=== PATIENT | female | born 1945 | race Caucasian/White ===

== ENCOUNTER 2016-06-18 14:31 | Emergency (ER) | payer MEDICARE, OTHER ==
[~2016-06-18] VITALS: Ht 162.6 cm; Wt 75.5 kg
[~2016-06-18 14:31] MED LIST: ALLE12TA PO; LEXA20TA PO; PRED20 PO; PROT40TA PO
[2016-06-18 14:50] VITALS: BP 135/89; PULSE 80; RESP 16; TEMP 99.2; O2SAT 100
[2016-06-18] MEDS ORDERED: LEXA20TA PO (15:10)
[2016-06-18] MEDS ORDERED: PROT40TA PO (15:10)
[2016-06-18] MEDS ORDERED: ALLE12TA2 PO (15:10)
[2016-06-18] MEDS ORDERED: GABA300C5 PO (15:10)
--- NOTE | 2016-06-18 15:33 | RADHPO ---
EXAM DATE/TIME: 06/18/2016 15:16 [facility] COMPARISON: No previous studies available for comparison. INDICATIONS : Trauma, fall. RADIATION DOSE: 67.80 CTDIvol (mGy) MEDICAL HISTORY : Carcinoma, sinuses. SURGICAL HISTORY : Surgery for sinus tumor. ENCOUNTER: Initial ACUITY: 1 day PAIN SCALE: 0/10 LOCATION: cranial TECHNIQUE: Multiple contiguous axial images were obtained of the head. Using automated exposure control and adj ustment of the mA and/or kV according to patient size, radiation dose was kept as low as reasonably a chievable to obtain optimal diagnostic quality images. FINDINGS: CEREBRUM: The ventricles are normal for age. No evidence of midline shift, mass lesion, hemorrhage or acute in farction. No extra-axial fluid collections are seen. POSTERIOR FOSSA: The cerebellum and brainstem are intact. The 4th ventricle is midline. The cerebellopontine angle i s unremarkable. EXTRACRANIAL: The visualized portion of the orbits is intact. There is moderate mucoperiosteal sinus disease. There 's been previous surgery on the left. SKULL: The calvaria is intact. No evidence of skull fracture. Note is made of small hematoma within the sca lp along the frontal bone. CONCLUSION: 1. No acute intercranial abnormality. 2. Hematoma within the scalp. 3. No acute intracranial abnormality. Paul Lira MD on June 18, 2016 at 15:28 Board Certified Radiologist. This report was verified electronically.
[2016-06-18 15:51] LABS: BASOPHIL % 0.5 % (0.0-2.0); EOSINOPHIL # 0.2 TH/MM3 (0-0.4); LYMPHOCYTE # 1.7 TH/MM3 (1.0-4.8); MEAN CELL VOLUME 97.9 FL (80.0-100.0); MEAN CORPUSCULAR HGB CONC 32.7 % (32.0-36.0); MONO % 21.8 % (0.0-8.0); NEUT % 51.7 % (16.0-70.0); PLATELET COUNT 97 TH/MM3 (150-450); RED BLOOD COUNT 3.36 MIL/MM3 (4.00-5.30); RED CELL DISTRIBUTION WIDTH 14.4 % (11.6-17.2); WHITE BLOOD COUNT 7.6 TH/MM3 (4.0-11.0)
--- NOTE | 2016-06-18 15:57 | PD ---
HPI Chief Complaint: Fall Time Seen by Provider: 15:04 Travel History International Travel<30 days: No Contact w/Intl Traveler<30days: No Traveled to known affect area: No History of Present Illness HPI This 70 year-old woman who presents to the emergency department complaining of trip over a curb with fall. She has a hematoma on her forehead. She did not lose consciousness. 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 Last chemotherapy was about a month or so ago. She has had a little bit again balance problems since starting chemotherapy. She was diagnosed about 18 months ago. She otherwise has been in her usual state of health. No other complaints. History Past Medical History Narrative Medical Sinus cancer Tetanus Vaccination: < 5 Years Influenza Vaccination: Yes Menopausal: Yes Social History Alcohol Use: Yes (DAILY GLASS OF WINE OR MIX DRINKS) Tobacco Use: No Allergies-Medications (Allergen,Severity, Reaction): Coded Allergies: Codeine (Verified Allergy, Severe, HIVES, 06/18/16) Erythromycin (Verified Allergy, Severe, HIVES, 06/18/16) Penicillin (Verified Allergy, Severe, HIVES, 06/18/16) Sulfa (Verified Allergy, Severe, HIVES, 06/18/16) Reported Meds & Prescriptions Reported Meds & Active Scripts Active Reported Gabapentin 300 Mg Cap 300 Mg PO BID Protonix (Pantoprazole Sodium) 40 Mg Tab 40 Mg PO DAILY Gisela-D 12 Hour Allergy (Fexofenadine-Pseudoephedrine ER 12 HR) 60-120 Mg Paulina 1 Tab PO BID Lexapro (Escitalopram Oxalate) 20 Mg Tab 20 Mg PO DAILY Review of Systems Except as stated in HPI: all other systems reviewed are Neg Physical Exam Narrative GENERAL: Well-appearing 70 year-old woman, no acute distress. SKIN: Focused skin assessment warm/dry. HEAD: Normocephalic. Contusion to the anterior forehead. EYES: Pupils equal and round. No scleral icterus. No injection or drainage. ENT: No nasal bleeding or discharge. Mucous membranes pink and moist. NECK: Trachea midline. No midline tenderness. Full painless range of motion. CARDIOVASCULAR: Regular rate and rhythm. No murmur appreciated. RESPIRATORY: No accessory muscle use. Clear to auscultation. Breath sounds equal bilaterally. GASTROINTESTINAL: Abdomen soft, non-tender, nondistended. Hepatic and splenic margins not palpable. MUSCULOSKELETAL: No obvious deformities. No edema. NEUROLOGICAL: Awake and alert. No obvious cranial nerve deficits. Motor grossly within normal limits. Normal speech. Data Data Last Documented VS Vital Signs Date Time Temp Pulse Resp B/P Pulse Ox O2 Delivery O2 Flow Rate FiO2 06/18/16 14:50 99.2 80 16 135/[address] Brain W/O Iv Contrast(Rout) (06/18/16 ) Ct Facial Bones W/O Iv Cont (06/18/16 ) Complete Blood Count With Diff (06/18/16 15:04) Radiology Film Requests (06/18/16 ) Labs Laboratory Tests Test 06/18/16 15:45 White Blood Count 7.6 TH/MM3 Red Blood Count 3.36 MIL/MM3 Hemoglobin 10.8 GM/DL Hematocrit 33.0 % Mean Corpuscular Volume 97.9 FL Mean Corpuscular Hemoglobin 32.0 PG Mean Corpuscular Hemoglobin 32.7 % Concent Red Cell Distribution Width 14.4 % Platelet Count 97 TH/MM3 Mean Platelet Volume 7.3 FL Neutrophils (%) (Auto) 51.7 % Lymphocytes (%) (Auto) 23.0 % Monocytes (%) (Auto) 21.8 % Eosinophils (%) (Auto) 3.0 % Basophils (%) (Auto) 0.5 % Neutrophils # (Auto) 4.0 TH/MM3 Lymphocytes # (Auto) 1.7 TH/MM3 Monocytes # (Auto) 1.7 TH/MM3 Eosinophils # (Auto) 0.2 TH/MM3 Basophils # (Auto) 0.0 TH/MM3 CBC Comment AUTO DIFF MDM Medical Decision Making Medical Screen Exam Complete: Yes Emergency Medical Condition: Yes Interpretation(s) CT head: Unremarkable. CBC unremarkable. Differential Diagnosis Head injury, neck injury, face injury, other Narrative Course Medical decision making 70 year-old woman presents after trip and fall over a curb. She looks well. Psych chemotherapy but has not chemotherapy for month or so. CT heads okay. We 'll get face and check cell count. Likely normal. Diagnosis Primary Impression: Fall Additional Impression: Closed head injury Departure Forms: Tests/Procedures, Work Release Special Instructions: Please allow patient to fly. She was evaluated by a physician yesterday for injuries from a fall. She is cleared to fly to [place]. Additional Instructions: Follow-up with her regular doctors. Return to the emergency department for any new or worsening symptoms. Med/Other Pt SpecificInfo: No Change to Meds Disposition: 01 DISCHARGE HOME Condition: Stable Kev Taylor MD June 18, 2016 15:57
[2016-06-18 16:05] LABS: HEMO FLAGS AUTO DIFF
--- NOTE | 2016-06-18 16:30 | RADHPO ---
EXAM DATE/TIME: 06/18/2016 15:16 [facility] COMPARISON: No previous studies available for comparison. INDICATIONS : Trauma, fall. RADIATION DOSE: 34.93 CTDIvol (mGy) MEDICAL HISTORY : Carcinoma, sinus. SURGICAL HISTORY : Sinus tumor surgery. ENCOUNTER: Initial ACUITY: 1 day PAIN SCORE: 0/10 LOCATION: facial TECHNIQUE: Volumetric scanning of the facial bones was performed. Using automated exposure control and adjustme nt of the mA and/or kV according to patient size, radiation dose was kept as low as reasonably achiev able to obtain optimal diagnostic quality images. FINDINGS: ORBITS: The orbital and infraorbital osseous structures are intact. The retroconal structures have a normal configuration. No radiopaque foreign bodies are seen. NASAL BONE: The nasal bone and maxillary spine are intact ZYGOMATIC ARCHES: Symmetric without evidence of fracture. SINUSES: Previous sinus surgery. Extensive residual or recurrent sinus disease with near-complete opacificatio n of multiple left-sided ethmoid air cells and left maxillary antrum and complete opacification of th e left sphenoid and fluid and thickening involving the remaining right sphenoid and right-sided ethmo ids and frontal sinuses. Mastoids are grossly clear. NASAL CAVITY: The nasal septum is intact and midline. The lacrimal ducts are intact. SOFT TISSUES: No radiopaque foreign bodies seen. Moderate focal soft tissue swelling in the right paramedian fronta l region.. INTRACRANIAL: No intracranial air seen. CRIBIFORM PLATE: Grossly intact. CONCLUSION: Frontal scalp swelling. Extensive sinus disease. No evidence of facial fracture. Jacinto Shoemaker MD on June 18, 2016 at 16:24 Board Certified Radiologist. This report was verified electronically.
[2016-06-18 16:42] LABS: EOSINOPHILS 2 % (0-4); NEUTROPHIL # MANUAL DIFF 4.2 TH/MM3 (1.8-7.7); OVALOCYTES 1+ (NORMAL); PLATELET ESTIMATE SMEAR LOW (NORMAL); PLATELET MORPHOLOGY NORMAL (NORMAL); POLYS (SEG NEUTROPHILS) 55 % (16-70); SCAN/DIFF FINAL DIFF MANUAL; WBC DIFF SAMPLE 100
[2016-06-18 16:58] VITALS: BP 128/88
== END 2016-06-18 17:05 | disposition home or self-care (01) ==
LOC: PHED 14:31
DX: S09.90XA Unspecified injury of head, initial encounter (principal); S00.83XA Contusion of other part of head, initial encounter; C31.9 Malignant neoplasm of accessory sinus, unspecified; Z79.899 Other long term (current) drug therapy
CPT/HCPCS: 70450; 70486; 85007; 85027

== ENCOUNTER 2016-07-03 19:03 | Inpatient (IN) | payer MEDICARE ==
[~2016-07-03] VITALS: Ht 162.6 cm; Wt 72.0 kg
[~2016-07-03 19:03] MED LIST changes: -ALLE12TA PO; +ALLE12TA2 PO; +GABA300C5 PO; -PRED20 PO
[2016-07-03 19:28] VITALS: BP 117/83; RESP 16; TEMP 97.8
[2016-07-03 19:32] VITALS: BP 129/78; PULSE 81; RESP 18; O2SAT 99
--- NOTE | 2016-07-03 19:39 | PD ---
HPI Chief Complaint: Altered Mental Status Time Seen by Provider: 19:16 Travel History International Travel<30 days: No Contact w/Intl Traveler<30days: No Traveled to known affect area: No History of Present Illness HPI This 70-year-old female has been extremely tired the last few days. Her says that he found her sitting on the toilet today possibly sleeping. She says she has been sleeping about 12 hours a day and is tired all the time. She was seen in the emergency department on June 18. On that day she had a fall and had extensive bruising to her face and head. He had a CT of the brain which was negative for intracranial disease. She had maxillofacial CT which showed extensive sinus disease but no fracture. 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 She has been treated with chemotherapy at a cancer Center in [place]. She was at the cancer center a few days after her fall and had a PET scan which did not show any evidence of disease. Lymphoma was diagnosed 2 years ago. She goes to her cancer center monthly has either an MRI or a PET scan. There has not been any new medication added. She has been having quite a severe right-sided headache for the past few days. She does not take any blood thinners. She does take Tylenol. Her says that she has been a bit confused much more so the last few days. She has had some mild confusion previously but it is becoming more evident. PFSH Past Medical History Anxiety: Yes Depression: Yes Chemotherapy: Yes (SINUS/BRAIN) COPD: Yes (MILD) Diminished Hearing: No Gastrointestinal Disorders: Yes (STOMACH ULCERS) Glaucoma: Yes (PRE GLAUCOMA) Ulcer: Yes (GASTRIC) ?: Not Menopausal: Yes Tubal Ligation: Yes Past Surgical History Eye Surgery: Yes (RIGHT EYE NEVUS REMOVED) Tonsillectomy: Yes Other Surgery: Yes (HEMMORROIDECTOMY, PLASTIC SURGERY -FACIAL, SINUS SURGERY) Social History Alcohol Use: Yes (DAILY GLASS OF WINE OR MIX DRINKS) Tobacco Use: No Substance Use: No Allergies-Medications (Allergen,Severity, Reaction): Coded Allergies: Codeine (Verified Allergy, Severe, HIVES, 07/03/16) Erythromycin (Verified Allergy, Severe, HIVES, 07/03/16) Penicillin (Verified Allergy, Severe, HIVES, 07/03/16) Sulfa (Verified Allergy, Severe, HIVES, 07/03/16) Reported Meds & Prescriptions Reported Meds & Active Scripts Active Reported Gabapentin 300 Mg Cap 300 Mg PO BID Protonix (Pantoprazole Sodium) 40 Mg Tab 40 Mg PO DAILY Gisela-D 12 Hour Allergy (Fexofenadine-Pseudoephedrine ER 12 HR) 60-120 Mg Paulina 1 Tab PO BID Lexapro (Escitalopram Oxalate) 20 Mg Tab 20 Mg PO DAILY Review of Systems General / Constitutional: No: Fever, Chills HENT: Positive: Headaches, Lightheadedness Cardiovascular: No: Chest Pain or Discomfort, Palpitations Respiratory: No: Cough, Shortness of Breath Gastrointestinal: No: Nausea, Vomiting Genitourinary: No: Frequency, Dysuria Musculoskeletal: No: Myalgias, Arthralgias Skin: No Rash, No Itching Neurologic: Positive: Weakness, Syncope, Headache, Change in Mentation, No: Seizures Psychiatric: No: Anxiety, Depression Endocrine: No: Heat Intolerance Hematologic/Lymphatic: No: Easy Bruising Physical Exam Narrative GENERAL: Well-developed female SKIN: Focused skin assessment warm/dry. HEAD: There is bilateral periorbital bruising. Normocephalic. EYES: Pupils equal and round. No scleral icterus. No injection or drainage. ENT: No nasal bleeding or discharge. Mucous membranes pink and moist. NECK: Trachea midline. No JVD. CARDIOVASCULAR: Regular rate and rhythm. No murmur appreciated. RESPIRATORY: No accessory muscle use. Clear to auscultation. Breath sounds equal bilaterally. GASTROINTESTINAL: Abdomen soft, non-tender, nondistended. Hepatic and splenic margins not palpable. MUSCULOSKELETAL: No obvious deformities. No clubbing. No cyanosis. No edema. NEUROLOGICAL: Awake and alert. No obvious cranial nerve deficits. Motor grossly within normal limits. Normal speech. PSYCHIATRIC: Appropriate mood and affect; insight and judgment normal. Patient is oriented to the month and the year but does not know the day. She does answer some questions inappropriately Data Data Last Documented VS Vital Signs Date Time Temp Pulse Resp B/P Pulse Ox O2 Delivery O2 Flow Rate FiO2 07/03/16 19:32 81 16 99 Room Air 07/03/16 19:32 129/78 07/03/16 19:28 97.8 Orders Electrocardiogram (07/03/16 19:30) Complete Blood Count With Diff (07/03/16 19:30) Comprehensive Metabolic Panel (07/03/16 19:30) Troponin I (07/03/16 19:30) Prothrombin Time / Inr (Pt) (07/03/16 19:30) Act Partial Throm Time (Ptt) (07/03/16 19:30) Urinalysis - C+S If Indicated (07/03/16 19:30) Thyroid Stimulating Hormone (07/03/16 19:30) Ct Brain W/O Iv Contrast(Rout) (07/03/16 19:30) Mri Brain W&W/O Contrast (07/03/16 20:42) Dexamethasone Inj (Decadron Inj) (07/03/16 21:00) Labs Laboratory Tests Test 07/03/16 19:46 White Blood Count 7.5 TH/MM3 Red Blood Count 3.34 MIL/MM3 Hemoglobin 11.0 GM/DL Hematocrit 32.9 % Mean Corpuscular Volume 98.7 FL Mean Corpuscular Hemoglobin 32.9 PG Mean Corpuscular Hemoglobin 33.3 % Concent Red Cell Distribution Width 14.2 % Platelet Count 112 TH/MM3 Mean Platelet Volume 7.4 FL Neutrophils (%) (Auto) 69.1 % Lymphocytes (%) (Auto) 17.8 % Monocytes (%) (Auto) 11.4 % Eosinophils (%) (Auto) 1.5 % Basophils (%) (Auto) 0.2 % Neutrophils # (Auto) 5.2 TH/MM3 Lymphocytes # (Auto) 1.3 TH/MM3 Monocytes # (Auto) 0.9 TH/MM3 Eosinophils # (Auto) 0.1 TH/MM3 Basophils # (Auto) 0.0 TH/MM3 CBC Comment DIFF FINAL Differential Comment Prothrombin Time 11.2 SEC Prothromb Time International 1.0 RATIO Ratio Activated Partial 25.3 SEC Thromboplast Time Sodium Level 134 MEQ/L Potassium Level 3.5 MEQ/L Chloride Level 101 MEQ/L Carbon Dioxide Level 20.9 MEQ/L Anion Gap 12 MEQ/L Blood Urea Nitrogen 10 MG/DL Creatinine 0.80 MG/DL Estimat Glomerular Filtration 71 ML/MIN Rate Random Glucose 122 MG/DL Calcium Level 9.2 MG/DL Total Bilirubin 0.4 MG/DL Aspartate Amino Transf 17 U/L (AST/SGOT) Alanine Aminotransferase 16 U/L (ALT/SGPT) Alkaline Phosphatase 139 U/L Troponin I LESS THAN 0.02 NG/ML Total Protein 7.0 GM/DL Albumin 3.6 GM/DL Thyroid Stimulating Hormone 2.210 uIU/ML 3rd Gen [facility] Medical Decision Making Medical Screen Exam Complete: Yes Emergency Medical Condition: Yes Medical Record Reviewed: Yes Differential Diagnosis Differential includes electrolyte imbalance, subdural hematoma, syncope, anemia Narrative Course EKG shows normal sinus rhythm. Her troponin is normal. Hemoglobin is 11 with a white count of 7. Her sodium is 134. TSH level is normal. CT scan of the head shows a new area of edema bilaterally in the left parietal occipital region. MRI is recommended. CT scan of the head is been done. There is a new area of edema I am the left parietal occipital region. MRI is recommended. I have discussed the case with Dr. Najera. He recommends admission to the main hospital, Decadron 4 mg IV every 6 Diagnosis Primary Impression: Altered mental status Qualified Code: R41.0 - Disorientation Additional Impression: Cerebral edema Admitting Information Admitting Physician Requests: Admit Eddie David MD July 03, 2016 19:39
[2016-07-03 20:00] VITALS: BP 152/82; PULSE 72; RESP 18; TEMP 97.3; O2SAT 100
[2016-07-03 20:00] LABS: AUTOMATED NEUTROPHIL # 5.2 TH/MM3 (1.8-7.7); BASOPHIL % 0.2 % (0.0-2.0); EOSINOPHIL # 0.1 TH/MM3 (0-0.4); EOSINOPHIL % 1.5 % (0.0-4.0); HEMATOCRIT 32.9 % (35.0-46.0); HEMO FLAGS DIFF FINAL; LYMPH % 17.8 % (9.0-44.0); LYMPHOCYTE # 1.3 TH/MM3 (1.0-4.8); MEAN CELL VOLUME 98.7 FL (80.0-100.0); MEAN CORPUSCULAR HEMOGLOBIN 32.9 PG (27.0-34.0); MEAN CORPUSCULAR HGB CONC 33.3 % (32.0-36.0); MONO % 11.4 % (0.0-8.0); NEUT % 69.1 % (16.0-70.0); PLATELET COUNT 112 TH/MM3 (150-450); RED BLOOD COUNT 3.34 MIL/MM3 (4.00-5.30); RED CELL DISTRIBUTION WIDTH 14.2 % (11.6-17.2); WHITE BLOOD COUNT 7.5 TH/MM3 (4.0-11.0)
[2016-07-03 20:09] LABS: CHLORIDE 101 MEQ/L (98-107); POTASSIUM 3.5 MEQ/L (3.5-5.1); SODIUM (NA) 134 MEQ/L (136-145)
[2016-07-03 20:12] LABS: APTT (PATIENT) 25.3 SEC (24.3-30.1); PROTHROMBIN TIME - PATIENT 11.2 SEC (9.8-11.6)
[2016-07-03 20:13] LABS: ANION GAP 12 MEQ/L (5-15); BICARBONATE 20.9 MEQ/L (21.0-32.0)
[2016-07-03 20:14] LABS: BLOOD UREA NITROGEN 10 MG/DL (7-18)
[2016-07-03 20:17] LABS: ALT (GPT) 16 U/L (10-53); AST (GOT) 17 U/L (15-37); GLOMERULAR FILTRATION RATE 71 ML/MIN (>89)
[2016-07-03 20:18] LABS: TOTAL BILIRUBIN ADULT 0.4 MG/DL (0.2-1.0)
[2016-07-03 20:20] LABS: ALKALINE PHOSPHATASE 139 U/L (45-117)
--- NOTE | 2016-07-03 20:33 | RADHPO ---
EXAM DATE/TIME: 07/03/2016 19:46 [facility] COMPARISON: CT BRAIN W/O CONTRAST, June 18, 2016, 15:16. INDICATIONS : Right sided head trauma two weeks ago. Right temporal headache and altered mental s tatus since. RADIATION DOSE: 56.78 CTDIvol (mGy) MEDICAL HISTORY : None SURGICAL HISTORY : Sinus surgery. ENCOUNTER: Initial ACUITY: 2 weeks PAIN SCALE: 6/10 LOCATION: Right temporal TECHNIQUE: Multiple contiguous axial images were obtained of the head. Using automated exposure control and adjustment of the mA and/or kV according to patient size, radiation dose was kept as low as reasonably achievable to obtain optimal diagnostic quality images. FINDINGS: There is an area of edema high in the left centrum semiovale. The right hemisphere is unremarkable. Posterior fossa is normal. Portion of the orbits and paranasal sinuses visualized are unremarkable. CONCLUSION: Abnormal CT scan of the head as described above with a new area of edema high in the left parietal occipital region. MRI would be helpful for further evaluation. Davis Lira MD FACR on July 03, 2016 at 20:26 Board Certified Radiologist. This report was verified electronically.
[2016-07-03] MEDS ORDERED: DEXAMETHASONE SOD PHOS 4 MG/ML VIAL IV PUSH ONE (21:00)
[2016-07-03] MEDS ORDERED: SODIUM CHLORIDE 0.9% FLUSH 10 ML FLUSH IV FLUSH PRN (21:45)
[2016-07-03] MEDS ORDERED: NALOXONE HCL 0.4 MG/ML AMP IV PRN (21:45)
[2016-07-03] MEDS: PANTOPRAZOLE SODIUM 40 MG VIAL IV PUSH SCH (22:10)
[2016-07-03] MEDS: SODIUM CHLOR 0.9% 1000 ML INJ 1,000 ML IV SCH (22:10)
[2016-07-03 22:15] VITALS: BP 152/75; PULSE 80; RESP 16; O2SAT 99
[2016-07-03] MEDS ORDERED: ACETAMINOPHEN 325 MG TAB PO ONE (23:45)
[2016-07-04] VITALS: BP 148/80; PULSE 68; RESP 18; TEMP 97.7; O2SAT 100
--- NOTE | 2016-07-04 01:31 | RADRPT ---
EXAM DATE/TIME: 07/04/2016 01:11 [facility] COMPARISON: No previous studies available for comparison. INDICATIONS : Screening for MRI clearance. MEDICAL HISTORY : Unobtainable. SURGICAL HISTORY : Port placement. ENCOUNTER: Initial ACUITY: 1 day PAIN SCORE: Non-responsive. LOCATION: Bilateral chest FINDINGS: AP of the chest demonstrate the lungs to be symmetrically aerated without evidence of mass, infiltrat e or effusion. The cardio-mediastinal contours are unremarkable. Osseous structures are intact. No MRI incompatible foreign body is identified. CONCLUSION: No MRI incompatible foreign body is identified. [id number] present with tip in superior vena cava. Nish Gutierrez MD on July 04, 2016 at 1:29 Board Certified Radiologist. This report was verified electronically.
--- NOTE | 2016-07-04 01:32 | RADRPT ---
EXAM DATE/TIME: 07/04/2016 01:14 [facility] COMPARISON: No previous studies available for comparison. INDICATIONS : Screening for MRI clearance. MEDICAL HISTORY : Unobtainable. SURGICAL HISTORY : Unobtainable. ENCOUNTER: Initial ACUITY: 1 day PAIN SCORE: Non-responsive. LOCATION: abdomen, all quadrants. FINDINGS: Examination of the abdomen demonstrates a normal bowel gas pattern. No free air is identified. No o rganomegaly is evident. Osseous structures are intact. No MRI incompatible foreign body is identifi ed. CONCLUSION: No evidence of obstruction. No MRI incompatible foreign body is identified. Nish Gutierrez MD on July 04, 2016 at 1:30 Board Certified Radiologist. This report was verified electronically.
[2016-07-04] MEDS ORDERED: GADODIAMIDE PF 287 MG/ML 5 ML VIAL (for RAD MRI) IV ONE (01:52)
--- NOTE | 2016-07-04 02:56 | RADRPT ---
EXAM DATE/TIME: 07/04/2016 01:37 [facility] COMPARISON: No previous studies available for comparison. INDICATIONS : Tumor. CONTRAST: 15 cc Omniscan (gadodiamide) IV MEDICAL HISTORY : Lymphoma. SURGICAL HISTORY : None. ENCOUNTER: Initial ACUITY: 2 day PAIN SCORE: 10/10 LOCATION: Left cranial TECHNIQUE: Multiplanar, multisequence MRI of the brain was performed both prior to and following the administrat ion of paramagnetic contrast. FINDINGS: There is a 2.1 cm enhancing mass in the medial aspect of the left parieto-occipital region with surro unding edema that extends into the adjacent corpus callosum. There is also an 8mm enhancing lesion in the anterior aspect of the left temporal lobe and an additional 5 mm enhancing lesion also in the le ft temporal lobe. There is abnormal edema in the right caudate nucleus and also in the peripheral aspect of the right f rontal lobe. These areas do not demonstrate significant associated enhancement postcontrast. Signal i s only minimally increased on the diffusion weighted images. There is no significant mass effect or shift. No hydrocephalus. No abnormal extra-axial fluid. There is fairly extensive mucosal thickening left maxillary sinus and mild right maxillary sinus muco neal thickening as well as ethmoid air cells mucosal thickening. CONCLUSION: 1. 2.1 cm enhancing mass in the medial aspect of the left parieto-occipital region with additional gutierrez bcentimeter lesions in the left temporal lobe. Findings are most characteristic of metastatic disease . 2. There is also abnormal edema in the right caudate nucleus and multifocal edema and the right front al lobe without significant associated enhancement. Differential diagnosis includes early metastatic disease or possibly contusions related to recent head trauma. There is no intense increased signal on diffusion-weighted images to suggest recent infarction. Nish Gutierrez MD on July 04, 2016 at 2:42 Board Certified Radiologist. This report was verified electronically.
--- NOTE | 2016-07-04 03:20 | HHI.HP ---
[facility] Service [facility] Primary Care Physician Non-Staff Admission Diagnosis ALTERED MENTAL STATUS, LOCALIZED CEREBRAL EDEMA Diagnoses: Chief Complaint: confusion, lethargy, syncope Travel History International Travel<30 Days: No Contact w/Intl Traveler <30 Da: No Traveled to Known Affected Are: No History of Present Illness Written by Jaky Shaffer, acting as scribe for Dr. Velazquez on 07/04/16 at 03:58. Mrs. Weathers is a 70-year-old female with a history of lymphoma, mild COPD, gastric ulcers, depression, and anxiety who presented to the emergency room in [place] on 07/03/2016 for evaluation of fatigue, lethargy, and increased confusion. She was diagnosed with lymphoma 2 years ago and has been treated at a cancer center in [place]. Shes had involvement of the sinuses. She was seen on June 18 in the ER following a fall with extensive bruising to face and had and was sent home after a negative CT of the brain. CT scan of head shows a new area of edema bilaterally in the left parietal occipital region. Dr. Najera, neurosurgeon, is aware. Patient was transferred to the [facility] and Decadron 4 mg IV every 6 hours was started. Brain MRI done here at the [facility] showed 2.1 cm enhancing mass in the medial aspect of the left parieto-occipital region with additional subcentimeter lesions in the left temporal lobe. Findings are most characteristic of metastatic disease. 2. There is also abnormal edema in the right caudate nucleus and multifocal edema and the right frontal lobe without significant associated enhancement. Differential diagnosis includes early metastatic disease or possibly contusions related to recent head trauma. There is no intense increased signal on diffusion-weighted images to suggest recent infarction. The patient is seen in her hospital room. States she is exhausted and has been unable to sleep. She reports a severe headache accompanied by photosensitivity - not worsened recently and denies unilateral weakness. Her is at the bedside and reports he has noted her to have increased confusion and severe fatigue over the past two weeks - found her in the bathroom yesterday with her head lodged between the toilet and the wall - thinks she passed out while on the toilet and she had to be awakened after they moved her from the bathroom; shortness of breath was noted by afterwards. He also reports that she has had a 10 pound weight loss in 2 weeks along with diminished appetite. Reports lymphoma in the sinus - 21 months of chemotherapy with last dose about six weeks ago in [place]. She has had 6 syncopal episodes since starting chemotherapy according to her . Denies any recent fevers, nausea, vomiting, diarrhea, hematuria, or dysuria. She is noted to have frequent urinary urgency while at bedside and patient reports history of recent "really bad UTI". Review of Systems Except as stated in HPI: all other systems reviewed are Neg Past Family Social History Past Medical History Anxiety Depression Lymphoma Mild COPD Stomach ulcers Denies hypertension, CAD, diabetes, liver/kidney problems, seizures, thyroid dysfunction . Past Surgical History Right eye nevus removed Tonsillectomy Hemorrhoidectomy Plastic surgery facial Sinus surgery . Reported Medications Reported Meds & Active Scripts Active Reported Gabapentin 300 Mg Cap 300 Mg PO BID Protonix (Pantoprazole Sodium) 40 Mg Tab 40 Mg PO DAILY Gisela-D 12 Hour Allergy (Fexofenadine-Pseudoephedrine ER 12 HR) 60-120 Mg Paulina 1 Tab PO BID Lexapro (Escitalopram Oxalate) 20 Mg Tab 20 Mg PO DAILY . Allergies: Coded Allergies: Codeine (Verified Allergy, Severe, HIVES, 07/03/16) Erythromycin (Verified Allergy, Severe, HIVES, 07/03/16) Penicillin (Verified Allergy, Severe, HIVES, 07/03/16) Sulfa (Verified Allergy, Severe, HIVES, 07/03/16) Active Ordered Medications Current Medications Dexamethasone Sodium Phosphate 4 mg 4 mg ONCE ONCE IV PUSH Last administered on 07/03/16 21:11; Start 07/03/16 at 21:00; Stop 07/03/16 at 21:01; Status DC Sodium Chloride (NS 1000 ml Inj) 1,000 ml @ 70 mls/hr [id number] IV Last administered on 07/03/16 22:10; Start 07/03/16 at 21:45 Sodium Chloride (NS Flush) 2 ml UNSCH PRN IV FLUSH FLUSH AFTER USING IV ACCESS ; Start 07/03/16 at 21:45 Sodium Chloride (NS Flush) 2 ml BID IV FLUSH ; Start 07/04/16 at 09:00 Naloxone HCl (Narcan Inj) 0.4 mg UNSCH PRN IV SEE LABEL COMMENTS; Start at 21:45 Pantoprazole Sodium (Protonix Inj) 40 mg Q24H IV PUSH Last administered on 07/03 22:10; Start 07/03/16 at 22:00 Dexamethasone Sodium Phosphate (Decadron Inj) 4 mg Q6HR IV PUSH Last administered on 07/04/16 00:00; Start 07/04/16 at 00:00 Acetaminophen (Tylenol) 650 mg ONCE ONCE PO Last administered on 07/03/16 23: 59; Start 07/03/16 at 23:45; Stop 07/03/16 at 23:48; Status DC Gadodiamide (Omniscan Pf Inj) 15 ml STK-MED ONCE IV Last administered on 01:52; Start 07/04/16 at 01:52; Stop 07/04/16 at 01:53; Status DC . Family History Father from CHF Mother from complications related to dementia . Social History Tobacco: denies; significant second hand smoke exposure as a child Alcohol: none currently; formerly drank a "little glass of wine" but alcohol doesn't mix well with her chemotherapy . Physical Exam Vital Signs Vital Signs Date Time Temp Pulse Resp B/P Pulse Ox O2 Delivery O2 Flow Rate FiO2 07/03/16 22:15 80 16 152/75 99 Room Air 07/03/16 20:00 97.3 72 18 152/82 100 07/03/16 19:32 81 16 99 Room Air 07/03/16 19:32 81 18 129/78 99 Room Air 07/03/16 19:28 97.8 16 117/83 Physical Exam GENERAL: This is an elderly female patient who appears photosensitive, in no apparent distress. SKIN: No rashes or lesions. Cool and dry. HEAD: Atraumatic. Normocephalic. EYES: No scleral icterus. No injection or drainage. ENT: Nose without bleeding, purulent drainage. NECK: Trachea midline. No JVD or lymphadenopathy. CARDIOVASCULAR: Regular rate and rhythm without murmurs, gallops, or rubs. RESPIRATORY: Clear to auscultation. Breath sounds equal bilaterally. No wheezes , rales, or rhonchi. GASTROINTESTINAL: Abdomen soft, non-tender, nondistended. No guarding. MUSCULOSKELETAL: Extremities without clubbing, cyanosis, or edema. No calf tenderness or calf asymmetry. NEUROLOGICAL: Awake and alert. Motor and sensory grossly within normal limits. Normal speech. Mild confusion noted. . Laboratory Laboratory Tests Test 07/03/16 19:46 White Blood Count 7.5 Red Blood Count 3.34 Hemoglobin 11.0 Hematocrit 32.9 Mean Corpuscular Volume 98.7 Mean Corpuscular Hemoglobin 32.9 Mean Corpuscular Hemoglobin 33.3 Concent Red Cell Distribution Width 14.2 Platelet Count 112 Mean Platelet Volume 7.4 Neutrophils (%) (Auto) 69.1 Lymphocytes (%) (Auto) 17.8 Monocytes (%) (Auto) 11.4 Eosinophils (%) (Auto) 1.5 Basophils (%) (Auto) 0.2 Neutrophils # (Auto) 5.2 Lymphocytes # (Auto) 1.3 Monocytes # (Auto) 0.9 Eosinophils # (Auto) 0.1 Basophils # (Auto) 0.0 CBC Comment DIFF FINAL Differential Comment Prothrombin Time 11.2 Prothromb Time International 1.0 Ratio Activated Partial 25.3 Thromboplast Time Sodium Level 134 Potassium Level 3.5 Chloride Level 101 Carbon Dioxide Level 20.9 Anion Gap 12 Blood Urea Nitrogen 10 Creatinine 0.80 Estimat Glomerular Filtration 71 Rate Random Glucose 122 Calcium Level 9.2 Total Bilirubin 0.4 Aspartate Amino Transf 17 (AST/SGOT) Alanine Aminotransferase 16 (ALT/SGPT) Alkaline Phosphatase 139 Troponin I LESS THAN 0.02 Total Protein 7.0 Albumin 3.6 Thyroid Stimulating Hormone 2.210 3rd Gen Result Diagram: 07/03/16194507/03/161945 Imaging Last Impressions Brain MRI 07/04/162041 Signed Impressions: Service Date/Time: Monday, July 04, 2016 01:37 - CONCLUSION: 1. 2.1 cm enhancing mass in the medial aspect of the left parieto-occipital region with additional subcentimeter lesions in the left temporal lobe. Findings are most characteristic of metastatic disease. 2. There is also abnormal edema in the right caudate nucleus and multifocal edema and the right frontal lobe without significant associated enhancement. Differential diagnosis includes early metastatic disease or possibly contusions related to recent head trauma. There is no intense increased signal on diffusion-weighted images to suggest recent infarction. Nish Gutierrez MD Head CT 07/03/16 1930 Signed Impressions: Service Date/Time: June 19:46 - CONCLUSION: Abnormal CT scan of the head as described above with a new area of edema high in the left parietal occipital region. MRI would be helpful for further evaluation. Davis Lira MD FACR Chest X-Ray 07/03/16 0000 Signed Impressions: Service Date/Time: Monday, July 04, 2016 01:11 - CONCLUSION: No MRI incompatible foreign body is identified. [id number] present with tip in superior vena cava. Nish Gutierrez MD Abdomen X-Ray 07/03/16 0000 Signed Impressions: Service Date/Time: Monday, July 04, 2016 01:14 - CONCLUSION: No evidence of obstruction. No MRI incompatible foreign body is identified. Nish Gutierrez MD Assessment and Plan Assessment and Plan Mrs. Weathers is a 70-year-old female with a history of lymphoma, mild COPD, gastric ulcers, depression, and anxiety who presented to the emergency room in [place] on 07/03/2016 for evaluation of fatigue, lethargy, and increased confusion. She was diagnosed with lymphoma 2 years ago and has been treated at a cancer center in [place]. Shes had involvement of the sinuses. She was seen on June 18 in the ER following a fall with extensive bruising to face and had and was sent home after a negative CT of the brain. CT scan of head shows a new area of edema bilaterally in the left parietal occipital region. Dr. Najera, neurosurgeon, is aware. Patient was transferred to [facility] and Decadron 4 mg IV every 6 hours was started. Cerebral edema Altered mental status - CT scan of head shows a new area of edema bilaterally in the left parietal occipital region. - Brain MRI showed 2.1 cm enhancing mass in the medial aspect of the left parieto-occipital region with additional subcentimeter lesions in the left temporal lobe. Findings are most characteristic of metastatic disease. 2. There is also abnormal edema in the right caudate nucleus and multifocal edema and the right frontal lobe without significant associated enhancement. Differential diagnosis includes early metastatic disease or possibly contusions related to recent head trauma. There is no intense increased signal on diffusion -weighted images to suggest recent infarction. - Neurosurgery consultation - Neurochecks every 4 hours - Nursing bedside swallow evaluation prior to initiation of diet; in the interim , diet is nothing by mouth - Bed rest Syncopal episode - seizure activity vs vascular etiology - portable EEG to evaluate for seizures - Echocardiogram to evaluate cardiac structure and function - Carotid ultrasound to rule out carotid artery stenosis History of gastric ulcers - Pantoprazole 40 mg IV push every 24 hours DVT prophylaxis - SCDs This note was transcribed by [email or web address] [Jaky Shaffer]. I, Dr. Reji Velazquez personally performed the history, physical exam, and medical decision making; and confirmed the accuracy of the information in the transcribed note. Authenticated by Dr. Reji Velazquez on 07/04/16 at 03:58. Discussed Condition With ER physician, RN, patient, and patient's Physician Certification 2 Midnight Certification Type: Admission for Inpatient Services Order for Inpatient Services The services are ordered in accordance with Medicare regulations or non- Medicare payer requirements, as applicable. In the case of services not specified as inpatient-only, they are appropriately provided as inpatient services in accordance with the 2-midnight benchmark. Estimated LOS (days): 4 days is the estimated time the patient will need to remain in the hospital, assuming treatment plan goals are met and no additional complications. Post-Hospital Plan: Not yet determined Jaky Shaffer July 04, 2016 03:20 Reji Velazquez MD Jul 28, 2016 12:51
[2016-07-04] MEDS ORDERED: SODIUM CHLORIDE 0.9% FLUSH 10 ML FLUSH IVF PRN (03:45)
[2016-07-04] MEDS ORDERED: diphenhydrAMINE HCL 25 MG CAP PO ONE (03:45)
[2016-07-04 04:00] VITALS: BP 155/88; PULSE 67; RESP 18; TEMP 95.6; O2SAT 100
[2016-07-04] MEDS: DEXAMETHASONE SOD PHOS 4 MG/ML VIAL IV PUSH SCH ×4 (05:50→17:34)
[2016-07-04 08:00] VITALS: PULSE 72
[2016-07-04 08:28] VITALS: BP 161/81; PULSE 81; RESP 17; TEMP 95.8; O2SAT 95
[2016-07-04] MEDS: SODIUM CHLORIDE 0.9% FLUSH 10 ML FLUSH IV FLUSH SCH ×2 (09:00→22:17)
--- NOTE | 2016-07-04 09:05 | PD.CONS ---
[facility] Service Neurosurgery Consult Requested By [facility] Reason for Consult Brain mass Primary Care Physician Non-Staff History of Present Illness CC. Confusion, syncope This is a 70-year-old female with a history of lymphoma, COPD, gastric ulcer, depression and anxiety, who presented to the emergency room in [place] on for evaluation of fatigue, lethargy, and increased confusion. She was diagnosed with lymphoma 2 years ago, and has been treated in [place]. She had involvement of the sinuses by lymphoma. Reports lymphoma in the sinus - 21 months of chemotherapy with last dose about six weeks ago in [place]. She has been seen on June 18 in the ER following a fall with extensive bruising to face and had and was sent home after a negative CT of the brain. A new CT of the brain done yesterday at [facility] showed a new area of edema bilaterally in the left parietal occipital region. Brain MRI showed 2.1 cm enhancing mass in the medial aspect of the left parieto-occipital region with additional subcentimeter lesions in the left temporal lobe. Findings are most characteristic of metastatic disease. She denies any focal weakness. She denies any sensory loss. No seizure activity noted. No incontinence of stool or urine. No tongue biting. Her reports he has noted her to have increased confusion and severe fatigue over the past two weeks. He found her in the bathroom yesterday with her head lodged between the toilet and the wall and she had to be awakened after they moved her from the bathroom. In addition , he reports that she has had a 10 pound weight loss in 2 weeks. Neurosurgical consultation was requested Review of Systems Constitutional: COMPLAINS OF: Fatigue, Weight loss, DENIES: Diaphoretic episodes, Fever, Weight gain, Chills, Dizziness, Change in appetite, Night Sweats Endocrine: DENIES: Abnorml menstrual pattern, Heat/cold intolerance, Polydipsia , Polyuria, Polyphagia Eyes: COMPLAINS OF: Blurred vision, DENIES: Diplopia, Eye inflammation, Eye pain, Vision loss, Photosensitivity, Double Vision Ears, nose, mouth, throat: DENIES: Tinnitus, Hearing loss, Vertigo, Nasal discharge, Oral lesions, Throat pain, Hoarseness, Ear Pain, Running Nose, Epistaxis, Sinus Pain, Toothache, Odynophagia Respiratory: DENIES: Apneas, Cough, Snoring, Wheezing, Hemoptysis, Sputum production, Shortness of breath Cardiovascular: COMPLAINS OF: Syncope, DENIES: Chest pain, Palpitations, Dyspnea on Exertion, PND, Lower Extremity Edema, Orthopnea, Claudication Gastrointestinal: DENIES: Abdominal pain, Black stools, Bloody stools, Constipation, Diarrhea, Nausea, Vomiting, Difficulty Swallowing, Anorexia Genitourinary: DENIES: Abnormal vaginal bleeding, Dysmenorrhea, Dyspareunia, Sexual dysfunction, Urinary frequency, Urinary incontinence, Urgency, Hematuria , Dysuria, Nocturia, Vaginal discharge Musculoskeletal: DENIES: Joint pain, Muscle aches, Stiffness, Joint Swelling, Back pain, Neck pain Integumentary: DENIES: Abnormal pigmentation, Pruritus, Rash, Nail changes, Breast masses, Breast skin changes, Nipple discharge Hematologic/lymphatic: COMPLAINS OF: Bruising, DENIES: Lymphadenopathy Immunologic/allergic: DENIES: Eczema, Urticaria Neurologic: COMPLAINS OF: Abnormal gait, DENIES: Headache, Localized weakness , Paresthesias, Seizures, Speech Problems, Tremor, Poor Balance Psychiatric: COMPLAINS OF: Depression, DENIES: Anxiety, Confusion, Mood changes, Hallucinations, Agitation, Suicidal Ideation, Homicidal Ideation, Delusions Past Family Social History Allergies: Coded Allergies: Codeine (Verified Allergy, Severe, HIVES, 07/03/16) Erythromycin (Verified Allergy, Severe, HIVES, 07/03/16) Penicillin (Verified Allergy, Severe, HIVES, 07/03/16) Sulfa (Verified Allergy, Severe, HIVES, 07/03/16) Past Medical History Anxiety Depression Lymphoma Mild COPD Stomach ulcers Past Surgical History Right eye nevus removed Tonsillectomy Hemorrhoidectomy Plastic surgery facial Sinus surgery . Reported Medications Gabapentin 300 Mg Cap 300 Mg PO BID Protonix (Pantoprazole Sodium) 40 Mg Tab 40 Mg PO DAILY Gisela-D 12 Hour Allergy (Fexofenadine-Pseudoephedrine ER 12 HR) 60-120 Mg Paulina 1 Tab PO BID Lexapro (Escitalopram Oxalate) 20 Mg Tab 20 Mg PO DAILY . Active Ordered Medications Current Medications Dexamethasone Sodium Phosphate 4 mg 4 mg ONCE ONCE IV PUSH Last administered on 07/03/16 21:11; Start 07/03/16 at 21:00; Stop 07/03/16 at 21:01; Status DC Sodium Chloride (NS 1000 ml Inj) 1,000 ml @ 70 mls/hr [id number] IV Last administered on 07/03/16 22:10; Start 07/03/16 at 21:45 Sodium Chloride (NS Flush) 2 ml UNSCH PRN IV FLUSH FLUSH AFTER USING IV ACCESS ; Start 07/03/16 at 21:45 Sodium Chloride (NS Flush) 2 ml BID IV FLUSH ; Start 07/04/16 at 09:00 Naloxone HCl (Narcan Inj) 0.4 mg UNSCH PRN IV SEE LABEL COMMENTS; Start at 21:45 Pantoprazole Sodium (Protonix Inj) 40 mg Q24H IV PUSH Last administered on 07/03 22:10; Start 07/03/16 at 22:00 Dexamethasone Sodium Phosphate (Decadron Inj) 4 mg Q6HR IV PUSH Last administered on 07/04/16 00:00; Start 07/04/16 at 00:00 Acetaminophen (Tylenol) 650 mg ONCE ONCE PO Last administered on 07/03/16 23: 59; Start 07/03/16 at 23:45; Stop 07/03/16 at 23:48; Status DC Gadodiamide (Omniscan Pf Inj) 15 ml STK-MED ONCE IV Last administered on 01:52; Start 07/04/16 at 01:52; Stop 07/04/16 at 01:53; Status DC . Family History Father from CHF Mother from complications related to dementia . Social History Tobacco: denies; significant second hand smoke exposure as a child Alcohol: none currently; formerly drank a "little glass of wine" Physical Exam Vital Signs Vital Signs Date Time Temp Pulse Resp B/P Pulse Ox O2 Delivery O2 Flow Rate FiO2 07/04/16 08:28 95.8 81 17 161/81 95 07/04/16 04:00 95.6 67 18 155/88 100 07/04/16 00:00 97.7 68 18 148/80 100 07/03/16 22:15 80 16 152/75 99 Room Air 07/03/16 20:00 97.3 72 18 152/82 100 07/03/16 19:32 81 16 99 Room Air 07/03/16 19:32 81 18 129/78 99 Room Air 07/03/16 19:28 97.8 16 117/83 Laboratory Laboratory Tests Test 07/03/16 19:46 White Blood Count 7.5 Red Blood Count 3.34 Hemoglobin 11.0 Hematocrit 32.9 Mean Corpuscular Volume 98.7 Mean Corpuscular Hemoglobin 32.9 Mean Corpuscular Hemoglobin 33.3 Concent Red Cell Distribution Width 14.2 Platelet Count 112 Mean Platelet Volume 7.4 Neutrophils (%) (Auto) 69.1 Lymphocytes (%) (Auto) 17.8 Monocytes (%) (Auto) 11.4 Eosinophils (%) (Auto) 1.5 Basophils (%) (Auto) 0.2 Neutrophils # (Auto) 5.2 Lymphocytes # (Auto) 1.3 Monocytes # (Auto) 0.9 Eosinophils # (Auto) 0.1 Basophils # (Auto) 0.0 CBC Comment DIFF FINAL Differential Comment Prothrombin Time 11.2 Prothromb Time International 1.0 Ratio Activated Partial 25.3 Thromboplast Time Sodium Level 134 Potassium Level 3.5 Chloride Level 101 Carbon Dioxide Level 20.9 Anion Gap 12 Blood Urea Nitrogen 10 Creatinine 0.80 Estimat Glomerular Filtration 71 Rate Random Glucose 122 Calcium Level 9.2 Total Bilirubin 0.4 Aspartate Amino Transf 17 (AST/SGOT) Alanine Aminotransferase 16 (ALT/SGPT) Alkaline Phosphatase 139 Troponin I LESS THAN 0.02 Total Protein 7.0 Albumin 3.6 Thyroid Stimulating Hormone 2.210 3rd Gen Result Diagram: 07/03/16194507/03/161945 Imaging Last Impressions Brain MRI 07/04/162041 Signed Impressions: Service Date/Time: Monday, July 04, 2016 01:37 - CONCLUSION: 1. 2.1 cm enhancing mass in the medial aspect of the left parieto-occipital region with additional subcentimeter lesions in the left temporal lobe. Findings are most characteristic of metastatic disease. 2. There is also abnormal edema in the right caudate nucleus and multifocal edema and the right frontal lobe without significant associated enhancement. Differential diagnosis includes early metastatic disease or possibly contusions related to recent head trauma. There is no intense increased signal on diffusion-weighted images to suggest recent infarction. Nish Gutierrez MD Head CT 5/18/17 1930 Signed Impressions: Service Date/Time: June 19:46 - CONCLUSION: Abnormal CT scan of the head as described above with a new area of edema high in the left parietal occipital region. MRI would be helpful for further evaluation. Davis Lira MD FACR Chest X-Ray 07/03/16 0000 Signed Impressions: Service Date/Time: Monday, July 04, 2016 01:11 - CONCLUSION: No MRI incompatible foreign body is identified. [id number] present with tip in superior vena cava. Nish Gutierrez MD Abdomen X-Ray 07/03/16 0000 Signed Impressions: Service Date/Time: Monday, July 04, 2016 01:14 - CONCLUSION: No evidence of obstruction. No MRI incompatible foreign body is identified. Nish Gutierrez MD Attending Statement Neuro. I have reviewed her clinical and radiological findings. Start neuro checks in a serial fashion. Decadron 4 mg every 6 hours. I have placed a consultation to an oncologist. I explained to the patient and to her the possibility that she could need a biopsy of a brain lesion PT and OT evaluation Nutrition. Start diet following the biopsy Renal. monitor closely urine output, BUN and creatinine Endocrine. Monitor serial Acu checks and SSI as needed in detail ID monitor for signs of infection Protonix for stress ulcer prophylaxis Terence hose and SCD's for DVT prophylaxis Onofre Najera MD July 04, 2016 09:05
[2016-07-04 09:21] LABS: AUTOMATED NEUTROPHIL # 2.6 TH/MM3 (1.8-7.7); BASOPHIL % 0.1 % (0.0-2.0); EOSINOPHIL % 0.1 % (0.0-4.0); HEMATOCRIT 33.7 % (35.0-46.0); HEMO FLAGS DIFF FINAL; LYMPH % 26.6 % (9.0-44.0); MEAN CELL VOLUME 98.5 FL (80.0-100.0); MEAN CORPUSCULAR HEMOGLOBIN 33.1 PG (27.0-34.0); MEAN CORPUSCULAR HGB CONC 33.6 % (32.0-36.0); MONO % 3.8 % (0.0-8.0); NEUT % 69.4 % (16.0-70.0); PLATELET COUNT 104 TH/MM3 (150-450); RED BLOOD COUNT 3.42 MIL/MM3 (4.00-5.30); RED CELL DISTRIBUTION WIDTH 14.9 % (11.6-17.2); WHITE BLOOD COUNT 3.8 TH/MM3 (4.0-11.0)
[2016-07-04 09:56] LABS: BICARBONATE 17.7 MEQ/L (21.0-32.0); POTASSIUM 3.4 MEQ/L (3.5-5.1)
[2016-07-04 10:34] LABS: BLOOD, URINE NEG (NEG); COMMENT (UR) CULT NOT INDICATED; CULTURE IF INDICATED CULT NOT INDICATED; GLUCOSE,URINE NEG (NEG); KETONE, URINE 10 mg/dL (NEG); NITRITE,URINE NEG (NEG); PH, URINE 7.5 (5.0-8.5); SQUAMOUS EPITHELIAL CELL URINE 1 /hpf (0-5); URINE COLOR LIGHT-YELLOW (YELLW/STRAW)
--- NOTE | 2016-07-04 11:07 | RADRPT ---
EXAM DATE/TIME: 07/04/2016 09:32 [place] COMPARISON: No previous studies available for comparison. INDICATIONS : Syncope. MEDICAL HISTORY : Chronic obstructive pulmonary disease. Ulcer. SURGICAL HISTORY : Tonsillectomy. Tubal ligation. ENCOUNTER: Initial ACUITY: 1 day PAIN SCORE: 110 LOCATION: Bilateral neck PEAK SYSTOLIC VELOCITIES (cm/sec): ICA/CCA RATIO: Right: 1.3 Left: 1.0 ICA: Right: 75 Left: 80 CCA: Right: 56 Left: 80 ECA: Right: 84 Left: 89 VERTEBRAL: Right: 72 antegrade Left: 67 antegrade Elevated flow velocities and ICA/CCA ratios have been found to correlate with increased degrees of vessel stenosis, calculated as percentage of diameter relative to a normal segment of distal ICA/CCA FINDINGS: Ultrasound of the carotid arteries was performed bilaterally using real-time Doppler and color Dopple r imaging. Examination of the right carotid artery demonstrates mild fibrous plaque within the bifurcation. No w aveform abnormalities are identified and no spectral broadening is seen. Examination of the left koch tid artery demonstrates mild fibrous plaque within the bulb. No waveform abnormalities are identified and no spectral broadening is seen. There is antegrade flow in both vertebral arteries. CONCLUSION: No evidence of hemodynamically significant lesion. Sedrick Villalobos MD on July 04, 2016 at 11:05 Board Certified Radiologist. This report was verified electronically.
[2016-07-04] MEDS: SODIUM CHLOR 0.9% 1000 ML INJ 1,000 ML IV SCH (11:58)
[2016-07-04 12:28] VITALS: BP 136/73; PULSE 79; RESP 18; TEMP 97.8; O2SAT 100
--- NOTE | 2016-07-04 12:40 | HHI.PR ---
Subjective Remarks Follow-up toxic metabolic encephalopathy/cerebra edema 07/04/16-patient seen and examined alert oriented to self and place. by the bedside. Still complains of right sided headache. Denies any emesis or vomiting. Denies any visual change. Objective Vitals Vital Signs Date Time Temp Pulse Resp B/P Pulse Ox O2 Delivery O2 Flow Rate FiO2 07/04/16 12:28 97.8 79 18 136/73 100 07/04/16 08:28 95.8 81 17 161/81 95 07/04/16 08:00 72 07/04/16 04:00 95.6 67 18 155/88 100 07/04/16 00:00 97.7 68 18 148/80 100 07/03/16 22:15 80 16 152/75 99 Room Air 07/03/16 20:00 97.3 72 18 152/82 100 07/03/16 19:32 81 16 99 Room Air 07/03/16 19:32 81 18 129/78 99 Room Air 07/03/16 19:28 97.8 16 117/83 I/O 07/03/16 07/03/16 07/03/16 07/04/16 07/04/16 07/04/16 07:00 15:00 23:00 07:00 15:00 23:00 Intake Total 240 ml Balance 240 ml Intake Oral 240 ml # Voids 4 Result Diagram: 07/04/16 0833 07/04/16 0833 Imaging Last Impressions Brain MRI 07/04/162 Signed Impressions: Service Date/Time: Monday, July 04, 2016 01:37 - CONCLUSION: 1. 2.1 cm enhancing mass in the medial aspect of the left parieto-occipital region with additional subcentimeter lesions in the left temporal lobe. Findings are most characteristic of metastatic disease. 2. There is also abnormal edema in the right caudate nucleus and multifocal edema and the right frontal lobe without significant associated enhancement. Differential diagnosis includes early metastatic disease or possibly contusions related to recent head trauma. There is no intense increased signal on diffusion-weighted images to suggest recent infarction. Nish Gutierrez MD Carotid Artery Ultrasound 07/04/16 0000 Signed Impressions: Service Date/Time: Monday, July 04, 2016 09:32 - CONCLUSION: No evidence of hemodynamically significant lesion. Sedrick Villalobos MD Head CT 07/03/16 1930 Signed Impressions: Service Date/Time: June 19:46 - CONCLUSION: Abnormal CT scan of the head as described above with a new area of edema high in the left parietal occipital region. MRI would be helpful for further evaluation. Davis Lira MD FACR Chest X-Ray 07/03/16 0000 Signed Impressions: Service Date/Time: Monday, July 04, 2016 01:11 - CONCLUSION: No MRI incompatible foreign body is identified. [id number] present with tip in superior vena cava. Nish Gutierrez MD Abdomen X-Ray 07/03/16 0000 Signed Impressions: Service Date/Time: Monday, July 04, 2016 01:14 - CONCLUSION: No evidence of obstruction. No MRI incompatible foreign body is identified. Nish Gutierrez MD Objective Remarks GENERAL: NAD SKIN: Warm and dry. HEAD: Normocephalic. EYES: No scleral icterus. No injection or drainage. NECK: Supple, trachea midline. No JVD or lymphadenopathy. CARDIOVASCULAR: Regular rate and rhythm without murmurs, gallops, or rubs. RESPIRATORY: Breath sounds equal bilaterally. No accessory muscle use. GASTROINTESTINAL: Abdomen soft, non-tender, nondistended. MUSCULOSKELETAL: No cyanosis, or edema. BACK: Nontender without obvious deformity. No CVA tenderness. 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 - Brain MRI showed 2.1 cm enhancing mass in the medial aspect of the left parieto-occipital region with additional subcentimeter lesions in the left temporal lobe. Findings are most characteristic of metastatic disease. - Neurosurgery consultation appreciated and may consider biopsy - Start Decadron 4 mg IV every 6H and consider ISS for steroid induced hyperglycemia -Consult oncology Syncopal episode - seizure activity vs vascular etiology - EEG pending to rule out seizure activity and consider neurology consultation for treatment with AED if abnormal EEG - Echocardiogram pending as well as carotid ultrasound - Ativan when necessary for seizure prophylaxis History of gastric ulcers - Pantoprazole 40 mg IV push every 24 hours DVT prophylaxis - Alireza Lomas MD July 04, 2016 12:40
[2016-07-04] MEDS ORDERED: DOCUSATE SODIUM 50 MG/SENNA 8.6 MG TAB PO PRN (12:45)
[2016-07-04] MEDS ORDERED: ONDANSETRON HCL 4 MG/2 ML VIAL IV PRN (12:45)
[2016-07-04] MEDS ORDERED: ALUMINUM/MAGNESIUM/SIMETH 30 ML CUP PO PRN (12:45)
[2016-07-04] MEDS ORDERED: PILL SPLITTER OTHER PRN (15:00)
[2016-07-04] MEDS ORDERED: ALPRAZolam 0.25 MG TAB PO ONE (15:00)
--- NOTE | 2016-07-04 15:00 | EC ---
Study Study Date:07/04/2016 STUDY CONCLUSIONS SUMMARY - Left ventricle: The cavity size was normal. Wall thickness was normal. Systolic function was normal. The estimated ejection fraction was in the range of 55% to 60%. Wall motion was normal; there were no regional wall motion abnormalities. - Mitral valve: Mild to moderate regurgitation. - Tricuspid valve: Mild regurgitation. If LV function is below 40, please consider prescribing an ACEI or ARB or document rationale for non-use. PROCEDURE DATA STUDY STATUS: Elective. Procedure: Transthoracic echocardiography. Image quality was good. Scanning was performed from the parasternal, apical, and subcostal acoustic windows. Study completion: The patient tolerated the procedure well. Transthoracic echocardiography. M-mode, complete 2D, complete spectral Doppler, and color Doppler. Height: Height: 64in. Weight: Weight: 158.7lb. Body mass index: BMI: 27.3kg/m^2. Body surface area: BSA: 1.77m^2. Patient status: Inpatient. CARDIAC ANATOMY LEFT VENTRICLE: The cavity size was normal. Wall thickness was normal. Systolic function was normal. The estimated ejection fraction was in the range of 55% to 60%. Wall motion was normal; there were no regional wall motion abnormalities. AORTIC VALVE: Trileaflet; normal thickness leaflets. Doppler: Transvalvular velocity was within the normal range. There was no stenosis. No regurgitation. Mean gradient: 7mm Hg (S). Peak gradient: 12mm Hg (S). AORTA: Aortic root: The aortic root was normal in size. MITRAL VALVE: Structurally normal valve. Doppler: Transvalvular velocity was within the normal range. There was no evidence for stenosis. Mild to moderate regurgitation. LEFT ATRIUM: The atrium was normal in size. RIGHT VENTRICLE: The cavity size was normal. Wall thickness was normal. PULMONIC VALVE: Doppler: Transvalvular velocity was within the normal range. There was no evidence for stenosis. No regurgitation. TRICUSPID VALVE: Structurally normal valve. Doppler: Transvalvular velocity was within the normal range. Mild regurgitation. PULMONARY ARTERY: The main pulmonary artery was normal-sized. Systolic pressure was within the normal range. RIGHT ATRIUM: The atrium was normal in size. PERICARDIUM: There was no pericardial effusion. SYSTEMIC VEINS: Inferior vena cava: The vessel was normal in size. Patient weight: 158.7lb _Ejection fraction:_ 65-75% _Fractional shortening:_ 32% up to 5Kg 5-11.5Kg 11.6-22.9Kg 23-45Kg 45-57Kg Aortic Root 7-13 <17 13-22 17-27 17-27 LA diam 6-13 <23 24-38 33-47 37-40 RVID 10-17 7-15 7-15 7-18 8-17 LVIDd 12-22 <32 24-38 33-47 37-40 LVPW 2-4 3-6 5-7 6-8 7-8 IVS 2-4 3-6 5-7 6-8 7-8 BASIC MEASUREMENTS ADULT NORMAL Left ventricle LV internal dimension, ED, chordal level, 48.7 mm 43-52 PLAX LV internal dimension, ES, chordal level, 35.2 mm 23-38 PLAX Fractional shortening, chordal level, PLAX *28 % >29 LV posterior wall thickness, ED 9.74 mm IVS/LVPW ratio, ED 0.92 <1.3 Ventricular septum Septal thickness, ED 9 mm Aortic valve Leaflet separation 18 mm 15-26 Left atrium Anterior-posterior dimension 29 mm Anterior-posterior dimension index 1.64 cm/m^2 <2.2 Right ventricle RV internal dimension, ED, PLAX 22.9 mm 19-38 BASIC MEASUREMENTS ADULT NORMAL Aortic valve Leaflet separation 18 mm 15-26 Aorta Root diameter, ED 27 mm 20-37 DOPPLER MEASUREMENTS ADULT NORMAL Aortic valve Peak velocity, S 173 cm/s Mean velocity, S 123 cm/s VTI, S 42.1 cm Mean gradient, S 7 mm Hg Peak gradient, S 12 mm Hg Mitral valve Peak E-wave velocity 62.7 cm/s Peak A-wave velocity 96.7 cm/s Peak E/A ratio 0.6 Tricuspid valve Regurgitant peak velocity 287 cm/s Peak RV-RA gradient, S 33 mm Hg LEGEND: Mean values are shown as u=mean value. Asterisk (*) andrea values outside specified normal range. Prepared and signed by Rito Qureshi [id number]
[2016-07-04] MEDS ORDERED: LORazepam 2 MG/ML VIAL IM ONE (17:15)
--- NOTE | 2016-07-04 21:14 | MB ---
cc: CALIN RESENDIZ MD DATE OF CONSULTATION 07/04/[address] Najera REASON FOR CONSULTATION Oncology consulted to render an opinion regarding patient with history of lymphoma, now presented with brain mass. 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 She was diagnosed with lymphoma about 22 months ago. She was seeing Dr. Huitron [place] cancer specialist. She was first treated with Rituxan and CHOP alternating with a high-dose methotrexate for about six months. Reportedly, she had a good response and was observed. Unfortunately, she developed recurrent disease about three months later. According to her , it recurred only in the sinus. She was then treated with Rituxan and bendamustine alternating with high-dose methotrexate. Her last dose was six weeks ago. She just came to [place] from [place]. Over the last week, she has increased fatigue and was very lethargic. Two days ago, her found her passed out in the bathroom and she was brought into the hospital. When I saw her, she was a little agitated but pleasant. She is confused, but she is still able to give some history. She denies any fever or chills. She has lost about 10 pounds over the last week. She has mild headache. She reportedly was seeing some halo, denies any chest pain, shortness of breath or cough, any nausea, vomiting, diarrhea or abdominal pain. Denies any dysuria or hematuria. PAST MEDICAL HISTORY 1. Non-Hodgkin lymphoma as above. 2. COPD 3. Gastric ulcer 4. Depression, anxiety. 5. Recurrent syncope. PAST SURGICAL HISTORY 1. Right eye nevus excision, 2. Tonsillectomy, 3. Hemorrhoidectomy 4. Facial plastic surgery, 5. Sinus surgery. FAMILY HISTORY Noncontributory. SOCIAL HISTORY No tobacco or alcohol use. The live six 6 months in [place] and six months in [place]. ALLERGIES CODEINE ERYTHROMYCIN PENICILLIN SULFA MEDICATIONS current, 1. Dexamethasone. 2. Protonix. REVIEW OF SYSTEMS CONSTITUTIONAL: Has a 10 pound weight loss. EYES: As above. ENT: No mouth sores or voice changes. CARDIOVASCULAR: Denies chest pressure, palpitation RESPIRATORY: Denies Shortness of breath or cough. GI: Negative. : Negative. MUSCULOSKELETAL: Denies any pain HEMATOLOGY: As above. ENDOCRINE: Negative DERMATOLOGY: Negative. PSYCHIATRIC: As above. NEUROLOGIC: As above. PHYSICAL EXAMINATION VITAL SIGNS: Temperature 97.8, blood pressure 136/73, O2 saturation 100%. GENERAL: She is oriented. She is pacing around the room, slightly agitated but pleasant. She is confused at times. HEENT: Atraumatic, normocephalic. Pupils equal, round and reactive to light. Extraocular muscles intact. No scleral icterus. Oropharynx moist mucosa. No lesion, no thrush. NECK: No thyromegaly. No palpable mass. LYMPHATICS: No palpable cervical, clavicular, axillary or inguinal lymph node CARDIOVASCULAR: Regular S1-S2, no murmur LUNGS: Clear to auscultation without wheezing or rhonchi. ABDOMEN: Soft, nontender, positive bowel sounds. I could not palpate liver or spleen. EXTREMITIES: No cyanosis or clubbing or edema, no calf tenderness. BACK: No paravertebral tenderness. SKIN: No rash or petechiae. NEUROLOGIC: Nonfocal. LABORATORY DATA Reviewed ASSESSMENT 1. Mental status change. MRI showed 2.1 cm enhancing mass in the medial aspect of left parietooccipital region with addition of another lesion in the left temporal lobe. There are also abnormal edema in the right caudate nucleus and multifocal edema in the right frontal lobe without significant enhancement. Reportedly, patient was diagnosed with B-cell non-Hodgkin's lymphoma involving the sinus and extended to the brain about 22 months ago. She was treated with Rituxan and CHOP alternating with high dose methotrexate for six months and had good response. Unfortunately, tumor recurred three months later. She had a recurrence in the sinus. She was treated with Rituxan and bendamustine alternating with high-dose methotrexate again. Her last dose of chemotherapy was six weeks ago. She reportedly had an MRI April 21 which did not show recurrent disease. She had a PET scan June 21, reportedly also did not show any recurrent disease. 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 I do not feel strongly that we need to do a biopsy. At this point, treatment options include radiation followed by consolidation chemotherapy. I had a long discussion with the patient's . He wants us to talk to the patient's neuro oncologist, Dr. Huitron before they will decide on the treatment. Dr. Caballero's office has ready closed and we will have to try to reach her on Thursday. 2. Mild COPD. She has no symptom. 3. Depression/anxiety 4. Gastric ulcer. She has no symptom. RECOMMENDATIONS 1. Extensive discussion with the patient and her . 2. Agree with continuing with Decadron. 3. We will discuss with Dr. Gallagher regarding radiation plan. 4. I think the best treatment option is proceed with radiation and possibly give her more consolidation high-dose methotrexate. 5. We will try to reach her neuro oncologist, Dr. Huitron phone #. Given the patient's history, I do not feel strongly that the patient needs a biopsy of the brain lesion. Thank you, Dr. Najera, for asking me to see this patient. MD BERNIE Valdovinos/ /8:34 PM /8:50 PM VICKY
--- NOTE | 2016-07-04 21:23 | EKG ---
Date Performed: 07/03/2016 Time Performed: 20:04:56 PTAGE: 70 years EKG: Sinus rhythm . Short MT interval Septal T wave changes are nonspecific Generalized low QRS voltages Borderline ECG PREVIOUS TRACING : 06/20/2011 14.00 Compared to prior tracing no significant change DOCTOR: Enrique Vang Interpretating Date/Time 07/04/2016 21:22:19
[2016-07-04 21:30] VITALS: BP 116/57; PULSE 92; RESP 19; TEMP 98.1; O2SAT 99
[2016-07-04] MEDS: PANTOPRAZOLE SODIUM 40 MG VIAL IV PUSH SCH (22:18)
[2016-07-05] VITALS (7 sets, daily range): BP systolic 117–139; BP diastolic 60–100; PULSE 67–99; RESP 18–27; TEMP 96.1–97.7; O2SAT 92–100
[2016-07-05] MEDS: PANTOPRAZOLE SOD 40 MG DELAYED RELEASE TAB PO SCH ×2 (00:19→09:43)
[2016-07-05] MEDS: DEXAMETHASONE 4 MG TAB PO SCH ×5 (00:19→18:01)
[2016-07-05] MEDS: SODIUM CHLORIDE 0.9% FLUSH 10 ML FLUSH IV FLUSH SCH ×2 (09:00→21:00)
--- NOTE | 2016-07-05 09:42 | PD.ONC.PN ---
Subjective Subjective Remarks Afebrile overnight. Patient feeling restless in bed. She feels the bed is uncomfortable. Very agitated. at bedside. Objective Data Date Time Temp Pulse Resp B/P Pulse Ox O2 Delivery O2 Flow Rate FiO2 07/05/16 08:00 96.7 92 18 117/70 92 07/05/16 00:15 97.7 88 21 120/60 98 07/04/16 21:30 98.1 92 19 116/57 99 07/04/16 12:28 97.8 79 18 136/73 100 07/05/16 07/05/16 07/05/16 07:00 15:00 23:00 Intake Total 400 ml Balance 400 ml Result Diagram: 07/04/1683207/04/16832 Laboratory Results Laboratory Tests Test 07/05/16 05:35 Lactate Dehydrogenase 276 U/L Imaging Studies Last 24 hours Impressions Brain MRI 07/04/162041 Signed Impressions: Service Date/Time: Monday, July 04, 2016 01:37 - CONCLUSION: 1. 2.1 cm enhancing mass in the medial aspect of the left parieto-occipital region with additional subcentimeter lesions in the left temporal lobe. Findings are most characteristic of metastatic disease. 2. There is also abnormal edema in the right caudate nucleus and multifocal edema and the right frontal lobe without significant associated enhancement. Differential diagnosis includes early metastatic disease or possibly contusions related to recent head trauma. There is no intense increased signal on diffusion-weighted images to suggest recent infarction. Nish Gutierrez MD Administered Medications Medications (Trade) Dose Ordered Sig/Anita Route PRN Reason Start Time Stop Time Status Last Admin Dose Admin Sodium Chloride (NS Flush) 2 ml BID IV FLUSH 07/04/16 09:00 07/04/16 09:00 Pantoprazole Sodium (Protonix Inj) 40 mg Q24H IV PUSH 07/03/16 22:00 Hold 07/03/16 22:10 Pantoprazole Sodium (Protonix) 40 mg DAILY PO 07/04/16 23:00 07/05/16 00:19 Dexamethasone (Decadron) 4 mg Q6HR PO 07/05/16 00:00 07/05/16 07:39 Objective Remarks GENERAL: Elderly female, lying in bed agitated. SKIN: Warm and dry. HEAD: Normocephalic. EYES: No scleral icterus. No injection or drainage. NECK: Supple, trachea midline. CARDIOVASCULAR: Regular rate and rhythm RESPIRATORY: Breath sounds equal bilaterally. No accessory muscle use. GASTROINTESTINAL: Abdomen soft, non-tender, nondistended. EXTREMITIES: No cyanosis NEUROLOGICAL: awake and alert, pressured speech. moving extremities Assessment/Plan Problem List: (1) Lymphoma Status: Acute Plan: --MRI showed 2.1 cm enhancing mass in the medial aspect of left parietooccipital region with addition of lesion in the left temporal lobe. There are also abnormal edema in the right caudate nucleus and multifocal edema in the right frontal lobe without significant enhancement. --PET scan June 21, reportedly also did not show any recurrent disease. 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 --Dr. Gallagher, Radiation oncologist planning to talk with patient's neuro oncologist, Dr. Ewing --Dr. Huitron phone #[phone]. --Given the patient's history, do not feel strongly that the patient needs a biopsy of the brain lesion. Assessment 70y/o female with history of lymphoma, now presented with brain mass. 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 She was diagnosed with lymphoma about 22 months ago. She was seeing Dr. Violeta Whitehead [place] cancer specialist. She was first treated with Rituxan and CHOP alternating with a high-dose methotrexate for about six months. Reportedly , she had a good response and was observed. Unfortunately, she developed recurrent disease about three months later. According to her , it recurred only in the sinus. She was then treated with Rituxan and bendamustine alternating with high-dose methotrexate. Her last dose was six weeks ago. She just came to [place] from [place]. Over the last week, she has increased fatigue and was very lethargic. Two days ago, her found her passed out in the bathroom and she was brought into the hospital. Plan 1. Consult case management, family considering taking her back to [place]. 2. Pending discussion with Dr. Gallagher regarding XRT here. Attending Statement The exam, history, and the medical decision-making described in the above note were completed with the assistance of the mid-level provider. I reviewed and agree with the findings presented. I attest that I had a [id number] encounter with the patient on the same day, and personally performed and documented my assessment and findings in the medical record. Pt seen and examined. Met with patient and family. Patient c/o Ativan makes her too sleepy. Communicating and cooperating well today. Mentation improved. Family are considering option to bring her back to [place] to her oncologist/ neuro oncologist and radiation oncologist. Steroids appear to have helped. Consult case management, support pt in their decision. Called Pt's oncologist, got the answering service, covering physician was a neurologist. Reports their hospital was full, no call back from Dr. Ada Whitehead to him, he suggest coordinate w/ Dr. Ada Whitehead on Thursday. Med Onc usually will accept the in patient. Unfortunately unable to give any additional information to family until Thursday with Dr.Lu Whitehead's return. Mary Beth Simeon July 05, 2016 09:41 Kelly Fontana MD July 05, 2016 15:31
--- NOTE | 2016-07-05 11:02 | HHI.PR ---
Subjective Remarks Follow-up for altered mental status Per , patient is more awake, stronger, less forgetful. Patient also acknowledges this. She feels better. However feels hyper, feels crazy and itching in the back. No note of paralysis in the lower and upper extremities. Mild headache. She says she is allergic to steroids, allegedly makes her hyper. It was explained that this is more of a side effect. Patient agreed to be on steroids Objective Vitals Vital Signs Date Time Temp Pulse Resp B/P Pulse Ox O2 Delivery O2 Flow Rate FiO2 07/05/16 08:00 96.7 92 18 117/70 92 07/05/16 00:15 97.7 88 21 120/60 98 07/04/16 21:30 98.1 92 19 116/57 99 07/04/16 12:28 97.8 79 18 136/73 100 I/O 07/04/16 07/04/16 07/04/16 07/05/16 07/05/16 07/05/16 07:00 15:00 23:00 07:00 15:00 23:00 Intake Total 240 ml 750 ml 400 ml Balance 240 ml 750 ml 400 ml Intake Oral 240 ml 750 ml 400 ml # Voids 4 3 1 1 # Bowel Movements 0 0 Result Diagram: 07/04/1633 07/04/1633 Imaging Last Impressions Brain MRI 07/04/162041 Signed Impressions: Service Date/Time: Monday, July 04, 2016 01:37 - CONCLUSION: 1. 2.1 cm enhancing mass in the medial aspect of the left parieto-occipital region with additional subcentimeter lesions in the left temporal lobe. Findings are most characteristic of metastatic disease. 2. There is also abnormal edema in the right caudate nucleus and multifocal edema and the right frontal lobe without significant associated enhancement. Differential diagnosis includes early metastatic disease or possibly contusions related to recent head trauma. There is no intense increased signal on diffusion-weighted images to suggest recent infarction. Nish Gutierrez MD Carotid Artery Ultrasound 07/04/16 0000 Signed Impressions: Service Date/Time: Monday, July 04, 2016 09:32 - CONCLUSION: No evidence of hemodynamically significant lesion. Sedrick Villalobos MD Head CT 07/03/16 1930 Signed Impressions: Service Date/Time: June 19:46 - CONCLUSION: Abnormal CT scan of the head as described above with a new area of edema high in the left parietal occipital region. MRI would be helpful for further evaluation. Davis Lira MD FACR Chest X-Ray 07/03/16 0000 Signed Impressions: Service Date/Time: Monday, July 04, 2016 01:11 - CONCLUSION: No MRI incompatible foreign body is identified. [id number]-[id number] present with tip in superior vena cava. Nish Gutierrez MD Abdomen X-Ray 07/03/16 0000 Signed Impressions: Service Date/Time: Monday, July 04, 2016 01:14 - CONCLUSION: No evidence of obstruction. No MRI incompatible foreign body is identified. Nish Gutierrez MD Objective Remarks GENERAL: NAD SKIN: Warm and dry. HEAD: Normocephalic. EYES: No scleral icterus. No injection or drainage. NECK: Supple, trachea midline. No JVD or lymphadenopathy. CARDIOVASCULAR: Regular rate and rhythm without murmurs, gallops, or rubs. RESPIRATORY: Breath sounds equal bilaterally. No accessory muscle use. GASTROINTESTINAL: Abdomen soft, non-tender, nondistended. MUSCULOSKELETAL: No cyanosis, or edema. BACK: Nontender without obvious deformity. No CVA tenderness. Awake, alert, oriented, 5 over 5 all 4 extremities. 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 EEG pending. History of lymphoma with possible metastasis to the brain with cerebral edema - CT scan of head shows a new area of edema bilaterally in the left parietal occipital region. Brain MRI showed 2.1 cm enhancing mass in the medial aspect of the left parieto-occipital region with additional subcentimeter lesions in the left temporal lobe. Findings are most characteristic of metastatic disease. Neurosurgery following, continue Decadron, oncology following, might need methotrexate and radiation, will await further input. No further biopsy needed per oncology. Further treatment per oncology Syncopal episode - seizure activity vs vascular etiology, EEG pending. - Echocardiogram ejection fraction 55-60%, carotid ultrasound no significant stenosis. Itching-could be secondary to steroids, patient also feels anxious and hyper, Benadryl as needed, Ativan for severe anxiety. History of gastric ulcers - Pantoprazole 40 mg IV push every 24 hours Start physical therapy. DVT prophylaxis - Francisca Hargrove MD July 05, 2016 11:02
[2016-07-05] MEDS: diphenhydrAMINE HCL 25 MG CAP PO PRN (12:03)
[2016-07-05] MEDS: LORazepam 1 MG TAB PO PRN (12:58)
[2016-07-05] MEDS ORDERED: diphenhydrAMINE HCL 2%/ZINC ACETATE 0.1% CREAM 30 APPLIC/30 GM TUBE TOPICAL PRN (13:45)
--- NOTE | 2016-07-05 14:54 | MG ---
cc: DULCE PINEDA Lab No: [id number] Date: 07/05/2016 Age: Sex: F Race: Enhancing mass left side, metastasis, also right caudate, bifrontal lobe, anxiety, COPD, Benadryl, Decadron, 9-10 Hz posterior rhythm is seen which is synchronous and symmetric. Some diffuse delta slowing is at times noted bilaterally. On the bipolar montage some right frontotemporal prominent theta waves are noted which are slightly sharp and contoured. Slight right arm movement was seen that did not correlate with any seizure activity. IMPRESSION Some diffuse slowing consistent with mild to moderate diffuse encephalopathy some focal slowing at times over the right temporal head region. No definite spikes, no sharp waves are noted. No prolonged seizures were seen. Clinical correlation is needed. MD STEVENSON Loza/hadley /2:15 PM /2:44 PM
--- NOTE | 2016-07-05 15:57 | HHI.NSPN ---
(Mike Powell) Note Status Status: Progress Note (Mike Powell) Interval History Interval History 07/04: This is a 70-year-old female with a history of lymphoma, COPD, gastric ulcer, depression and anxiety, who presented to the emergency room in [place] on 07/03/2016 for evaluation of fatigue, lethargy, and increased confusion. She was diagnosed with lymphoma 2 years ago, and has been treated in [place]. She had involvement of the sinuses by lymphoma. Reports lymphoma in the sinus - 21 months of chemotherapy with last dose about six weeks ago in [place]. She has been seen on June 18 in the ER following a fall with extensive bruising to face and had and was sent home after a negative CT of the brain. A new CT of the brain done yesterday at [facility] showed a new area of edema bilaterally in the left parietal occipital region. Brain MRI showed 2.1 cm enhancing mass in the medial aspect of the left parieto-occipital region with additional subcentimeter lesions in the left temporal lobe. Findings are most characteristic of metastatic disease. She denies any focal weakness. She denies any sensory loss. No seizure activity noted. No incontinence of stool or urine. No tongue biting. Her reports he has noted her to have increased confusion and severe fatigue over the past two weeks. He found her in the bathroom yesterday with her head lodged between the toilet and the wall and she had to be awakened after they moved her from the bathroom. In addition , he reports that she has had a 10 pound weight loss in 2 weeks. Neurosurgical consultation was requested 07/05: Patient is awake & alert, talking with family & friends. She states she is doing much better than before. She had a headache earlier but none at present. Her conversation was mostly appropriate but she did search for what she wanted to say at times. (Mike Powell) Labs, Micro, & Vital Signs Constitutional Vital Signs Date Time Temp Pulse Resp B/P Pulse Ox O2 Delivery O2 Flow Rate FiO2 07/05/16 12:00 97.6 90 18 132/81 99 07/05/16 08:00 96.7 92 18 117/70 92 07/05/16 00:15 97.7 88 21 120/60 98 07/04/16 21:30 98.1 92 19 116/57 99 07/05/16 07:00 Intake Total 1150 ml Balance 1150 ml (Mike Powell) Review of Systems/Exam ROS Constitutional: Patient denies any fever or chills. Respiratory: Patient denies any shortness of breath or productive cough. Cardiovascular: Patient denies any chest pain, palpitations or irregular heart beat. Gastrointestinal: Patient denies any abdominal pain, nausea, vomiting or bowel incontinence. Genitourinary: Patient denies any urinary incontinence. Musculoskeletal: Patient denies any pain or weakness to the extremities. Neurologic: Patient states that she did have a headache earlier but it has resolved. She denies any dizziness, numbness or tingling. Psychiatric: Patient states that she did have some anxiety earlier that resolved after having received Ativan. Exam GENERAL: Well nourished, well developed female who appears her stated age, NAD. HEENT: Normocephalic atraumatic. PERRLA, EOMI. MMM & pink. CARDIOVASCULAR: S1S2 w/RRR w/o M/G/R, cap refill < 2 sec, radial & pedal pulses 2+ bilaterally, no pedal edema. RESPIRATORY: CTAB w/o W/R/R, equal excursion, nonlaboured, on RA. GASTROINTESTINAL: Abdomen soft, nontender, positive bowel sounds. EXTREMITIES: RUBIO w/o difficulty, no TTP, no deformity, discolouration or clubbing noted. NEUROLOGICAL: AAOx3 Speech clear & appropriate for the most part, she does search for words at times Follows simple commands CN II-XII grossly intact Sensation to light touch grossly intact to all extremities Motor strength 5/5 to all major flexion & extension muscle groups (Mike Powell) Medications Current Medications Current Medications Medications (Trade) Dose Ordered Sig/Anita Route Start Time Stop Time Status Last Admin (NS Flush) 2 ml UNSCH PRN IV FLUSH 07/03/16 21:45 (NS Flush) 2 ml BID IV FLUSH 07/04/16 09:00 07/04/16 09:00 (Narcan Inj) 0.4 mg UNSCH PRN IV 07/03/16 21:45 (Protonix Inj) 40 mg Q24H IV PUSH 07/03/16 22:00 Hold 07/03/16 22:10 (NS Flush) 5 ml UNSCH PRN IVF 07/04/16 03:45 (Heparin Central Flush) 250 units UNSCH PRN IV FLUSH 07/04/16 03:45 (Tylenol) 650 mg Q4H PRN PO 07/04/16 12:45 (Zofran Inj) 4 mg Q6H PRN IV 07/04/16 12:45 (Nely-Colace) 1 tab BID PRN PO 07/04/16 12:45 (Mag-Al Plus Susp Liq) 30 ml Q6H PRN PO 07/04/16 12:45 (Pill Splitter) 1 ea UNSCH PRN OTHER 07/04/16 15:00 (Protonix) 40 mg DAILY PO 07/04/16 23:00 07/05/16 09:43 (Decadron) 4 mg Q6HR PO 07/05/16 00:00 07/05/16 12:00 (Benadryl) 25 mg Q6H PRN PO 07/05/16 11:00 07/05/16 12:03 (Ativan) 1 mg Q8H PRN PO 07/05/16 11:00 07/05/16 12:58 (Benadryl 2% Cream) 1 applic TID PRN TOPICAL 07/05/16 13:45 (Mike Powell) Medical Decision Making MDM Remarks Altered mental status Multiple brain lesions consistent with metastatic disease Neurologically stable, confusion seems improved (Mike Powell) Plan Plan Remarks Serial neuro checks. Decadron 4 mg every 6 hours. Oncology consult. May need biopsy of brain lesion. Patient & family considering returning to [place] for further evaluation & treatment. (Mike Powell) Attending Statement The exam, history, and the medical decision-making described in the above note were completed with the assistance of the mid-level provider. I reviewed and agree with the findings presented. I attest that I had a ldle-ng-[id number] encounter with the patient on the same day, and personally performed and documented my assessment and findings in the medical record. D/W family. Oncology to see. Possible brain biopsy depending on consult and patient decisions (Francisco Javier Steward MD) Mike Powell July 05, 2016 15:57 Francisco Javier Steward MD Aug 19, 2016 16:21
[2016-07-05] MEDS: ACETAMINOPHEN 325 MG TAB PO PRN (21:32)
[2016-07-06] VITALS: BP 120/64; PULSE 67; RESP 19; TEMP 98; O2SAT 97
[2016-07-06] MEDS: diphenhydrAMINE HCL 25 MG CAP PO PRN ×2 (00:05→05:51)
[2016-07-06] MEDS: DEXAMETHASONE 4 MG TAB PO SCH ×4 (00:05→17:58)
[2016-07-06] MEDS: LORazepam 1 MG TAB PO PRN (03:51)
[2016-07-06 04:15] VITALS: BP 142/83; PULSE 65; RESP 20; TEMP 97.5; O2SAT 100
[2016-07-06 08:00] VITALS: BP 117/78; PULSE 71; RESP 18; TEMP 96.7
[2016-07-06 08:06] LABS: AUTOMATED NEUTROPHIL # 3.7 TH/MM3 (1.8-7.7); HEMATOCRIT 28.8 % (35.0-46.0); LYMPH % 15.1 % (9.0-44.0); LYMPHOCYTE # 0.7 TH/MM3 (1.0-4.8); MEAN CELL VOLUME 99.4 FL (80.0-100.0); MEAN CORPUSCULAR HEMOGLOBIN 34.1 PG (27.0-34.0); MEAN CORPUSCULAR HGB CONC 34.4 % (32.0-36.0); MONO % 7.1 % (0.0-8.0); NEUT % 77.8 % (16.0-70.0); PLATELET COUNT 99 TH/MM3 (150-450); RED CELL DISTRIBUTION WIDTH 15.5 % (11.6-17.2); WHITE BLOOD COUNT 4.8 TH/MM3 (4.0-11.0)
[2016-07-06] MEDS: PANTOPRAZOLE SOD 40 MG DELAYED RELEASE TAB PO SCH (08:17)
[2016-07-06 08:23] LABS: BICARBONATE 22.1 MEQ/L (21.0-32.0); POTASSIUM 3.4 MEQ/L (3.5-5.1)
[2016-07-06 08:31] LABS: HEMO FLAGS AUTO DIFF
--- NOTE | 2016-07-06 08:33 | PD.ONC.PN ---
Subjective Subjective Remarks Afebrile overnight. Patient just finished walking with PT. She states she is feeling better today. Objective Data Date Time Temp Pulse Resp B/P Pulse Ox O2 Delivery O2 Flow Rate FiO2 07/06/16 08:00 96.7 71 18 117/78 07/06/16 04:15 97.5 65 20 142/83 100 07/06/16 00:00 98.0 67 19 120/64 97 07/05/16 20:30 97.0 67 18 121/72 98 07/05/16 18:16 96.1 88 20 127/85 100 07/05/16 13:17 99 25 139/96 97 07/05/16 13:11 96.2 91 27 136/100 100 07/05/16 12:00 97.6 90 18 132/81 99 07/06/16 07/06/16 07/06/16 07:00 15:00 23:00 Intake Total 72 ml Balance 72 ml Result Diagram: 07/04/1633 07/06/1622 Laboratory Results Laboratory Tests Test 07/06/16 07:22 Sodium Level 139 MEQ/L Potassium Level 3.4 MEQ/L Chloride Level 106 MEQ/L Carbon Dioxide Level 22.1 MEQ/L Anion Gap 11 MEQ/L Blood Urea Nitrogen 13 MG/DL Creatinine 0.68 MG/DL Estimat Glomerular Filtration 85 ML/MIN Rate Random Glucose 123 MG/DL Calcium Level 9.4 MG/DL Administered Medications Medications (Trade) Dose Ordered Sig/Anita Route PRN Reason Start Time Stop Time Status Last Admin Dose Admin Sodium Chloride (NS Flush) 2 ml BID IV FLUSH 07/04/16 09:00 07/05/16 21:00 Pantoprazole Sodium (Protonix Inj) 40 mg Q24H IV PUSH 07/03/16 22:00 Hold 07/03/16 22:10 Acetaminophen (Tylenol) 650 mg Q4H PRN PO Temp > 100.4 07/04/16 12:45 07/05/16 21:32 Pantoprazole Sodium (Protonix) 40 mg DAILY PO 07/04/16 23:00 07/06/16 08:17 Dexamethasone (Decadron) 4 mg Q6HR PO 07/05/16 00:00 07/06/16 05:53 Diphenhydramine HCl (Benadryl) 25 mg Q6H PRN PO itching,anxiety,sleep 07/05/16 11:00 07/06/16 05:51 Lorazepam (Ativan) 1 mg Q8H PRN PO severe anxiety 07/05/16 11:00 07/06/16 03:51 Diphenhydramine HCl (Benadryl 2% Cream) 1 applic TID PRN TOPICAL ITCHING 07/05/16 13:45 07/05/16 18:01 Objective Remarks GENERAL: Elderly female, appears calm, sitting up in recliner. SKIN: Warm and dry. HEAD: Normocephalic. EYES: No scleral icterus. No injection or drainage. NECK: Supple, trachea midline. CARDIOVASCULAR: Regular rate and rhythm RESPIRATORY: Breath sounds equal bilaterally. No accessory muscle use. GASTROINTESTINAL: Abdomen soft, non-tender, nondistended. EXTREMITIES: No cyanosis NEUROLOGICAL: awake and alert, appropriate speech. moving extremities. ambulatory with assistance Assessment/Plan Problem List: (1) Lymphoma Status: Acute Plan: --MRI showed 2.1 cm enhancing mass in the medial aspect of left parietooccipital region with addition of lesion in the left temporal lobe. There are also abnormal edema in the right caudate nucleus and multifocal edema in the right frontal lobe without significant enhancement. --PET scan June 21, reportedly also did not show any recurrent disease. --brain lesion is most consistent with POWDER GUARD lymphoma given the patient's history -- treatment options include radiation followed by consolidation chemotherapy. --Dr. Huitron phone #[phone]. --Given the patient's history, do not feel strongly that the patient needs a biopsy of the brain lesion. Assessment 70y/o female with history of lymphoma, now presented with brain mass. 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 She was diagnosed with lymphoma about 22 months ago. She was seeing Dr. Violeta Whitehead [facility] cancer specialist. She was first treated with Rituxan and CHOP alternating with a high-dose methotrexate for about six months. Reportedly , she had a good response and was observed. Unfortunately, she developed recurrent disease about three months later. According to her , it recurred only in the sinus. She was then treated with Rituxan and bendamustine alternating with high-dose methotrexate. Her last dose was six weeks ago. She just came to [place] from [place]. Over the last week, she has increased fatigue and was very lethargic. Two days ago, her found her passed out in the bathroom and she was brought into the hospital. Plan 1. discussed with --he states they have not reached a decision about whether to start treatment here or in [place]. He is waiting to talk to Dr. Gallagher again about radiation 2. await CBC today--will check to see if platelets continue to fall, may need to check for DVT Attending Statement The exam, history, and the medical decision-making described in the above note were completed with the assistance of the mid-level provider. I reviewed and agree with the findings presented. I attest that I had a mitn-hl-taaw encounter with the patient on the same day, and personally performed and documented my assessment and findings in the medical record. Pt seen and examined. Complains of headache. Slow to find her words and express her thoughts. Scared about commercial flight since she got stuck in [place] before. Discussed with neurologist inspector outside production regarding pt's POWDER GUARD lymphoma recurrence and need for urgent treatment. He was able to contact pt's neuro oncologist Dr. Ada Morales who agree to take care of patient. However according to their structure a hospitalist will admit the patient in their service. Provided with above option, pt, and two children are in agreement to go back to [place] for therapy. Called transfer center contact [facility] [phone], Accepting physician Dr. Lauren Heard. Peer to peer with patient's [facility] ( # [phone]) but spoke to a physician in [place], [place] [phone] Gave them contract number for outpatient coordinator [facility] to plan when bed confirmed for patient. Case management Kelin reilly. Discussed w/ Dr. Gallagher, agree with transfer per patient and family's wish. Treating physician who is aware of patient's condition is receiving them. Mary Beth Simeon July 06, 2016 08:32 Kelly Fontana MD July 06, 2016 15:19
[2016-07-06] MEDS: SODIUM CHLORIDE 0.9% FLUSH 10 ML FLUSH IV FLUSH SCH ×2 (09:00→21:55)
[2016-07-06] MEDS: GABAPENTIN 300 MG CAP PO SCH ×2 (09:54→21:53)
[2016-07-06] MEDS: ESCITALOPRAM OXALATE 20 MG TAB PO SCH (09:54)
[2016-07-06] MEDS: ACETAMINOPHEN 325 MG TAB PO PRN (10:34)
[2016-07-06 10:47] LABS: OVALOCYTES 1+ (NORMAL); PLATELET ESTIMATE SMEAR LOW (NORMAL); PLATELET MORPHOLOGY NORMAL (NORMAL); SCAN/DIFF AUTO DIFF CONFIRMED
--- NOTE | 2016-07-06 11:02 | HHI.PR ---
Subjective Remarks Follow-up cerebral edema. Still with headache improving dizziness. Awaiting follow-up with radiation oncology to decide treatment. Discussed with oncology. Since with family and RN Objective Vitals Vital Signs Date Time Temp Pulse Resp B/P Pulse Ox O2 Delivery O2 Flow Rate FiO2 07/06/16 08:00 96.7 71 18 117/78 07/06/16 04:15 97.5 65 20 142/83 100 07/06/16 00:00 98.0 67 19 120/64 97 07/05/16 20:30 97.0 67 18 121/72 98 07/05/16 18:16 96.1 88 20 127/85 100 07/05/16 13:17 99 25 139/96 97 07/05/16 13:11 96.2 91 27 136/100 100 07/05/16 12:00 97.6 90 18 132/81 99 I/O 07/05/16 07/05/16 07/05/16 07/06/16 07/06/16 07/06/16 06:59 14:59 22:59 06:59 14:59 22:59 Intake Total 400 ml 850 ml 72 ml Balance 400 ml 850 ml 72 ml Intake Oral 400 ml 850 ml 72 ml # Voids 1 0 2 # Bowel Movements 0 0 0 Result Diagram: 07/06/1672107/06/16721 Imaging Last Impressions Brain MRI 07/04/162041 Signed Impressions: Service Date/Time: Monday, July 04, 2016 01:37 - CONCLUSION: 1. 2.1 cm enhancing mass in the medial aspect of the left parieto-occipital region with additional subcentimeter lesions in the left temporal lobe. Findings are most characteristic of metastatic disease. 2. There is also abnormal edema in the right caudate nucleus and multifocal edema and the right frontal lobe without significant associated enhancement. Differential diagnosis includes early metastatic disease or possibly contusions related to recent head trauma. There is no intense increased signal on diffusion-weighted images to suggest recent infarction. Nish Gutierrez MD Carotid Artery Ultrasound 07/04/16 0000 Signed Impressions: Service Date/Time: Monday, July 04, 2016 09:32 - CONCLUSION: No evidence of hemodynamically significant lesion. Sedrick Villalobos MD Head CT 07/03/16 1930 Signed Impressions: Service Date/Time: June 19:46 - CONCLUSION: Abnormal CT scan of the head as described above with a new area of edema high in the left parietal occipital region. MRI would be helpful for further evaluation. Davis Lira MD FACR Chest X-Ray 07/03/16 0000 Signed Impressions: Service Date/Time: Monday, July 04, 2016 01:11 - CONCLUSION: No MRI incompatible foreign body is identified. Disjxr-t-Vuel present with tip in superior vena cava. Nish Gutierrez MD Abdomen X-Ray 07/03/16 0000 Signed Impressions: Service Date/Time: Monday, July 04, 2016 01:14 - CONCLUSION: No evidence of obstruction. No MRI incompatible foreign body is identified. Nish Gutierrez MD Objective Remarks GENERAL: NAD SKIN: Warm and dry. HEAD: Normocephalic. EYES: No scleral icterus. No injection or drainage. NECK: Supple, trachea midline. No JVD or lymphadenopathy. CARDIOVASCULAR: Regular rate and rhythm without murmurs, gallops, or rubs. RESPIRATORY: Breath sounds equal bilaterally. No accessory muscle use. GASTROINTESTINAL: Abdomen soft, non-tender, nondistended. MUSCULOSKELETAL: No cyanosis, or edema. BACK: Nontender without obvious deformity. No CVA tenderness. Awake, alert, oriented, 5 over 5 all 4 extremities. 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 EEG without seizure activity History of lymphoma with possible metastasis to the brain with cerebral edema - CT scan of head shows a new area of edema bilaterally in the left parietal occipital region. Brain MRI showed 2.1 cm enhancing mass in the medial aspect of the left parieto-occipital region with additional subcentimeter lesions in the left temporal lobe. Findings are most characteristic of metastatic disease. Neurosurgery following, continue Decadron, oncology following, will await further input. No further biopsy needed per oncology. Further treatment per oncology Syncopal episode - seizure activity vs vascular etiology, EEG without seizure - Echocardiogram ejection fraction 55-60%, carotid ultrasound no significant stenosis. Itching-could be secondary to steroids, patient also feels anxious and hyper, Benadryl as needed, Ativan for severe anxiety. History of gastric ulcers - Pantoprazole Continue physical therapy recommended home health care with wheeled walker. DVT prophylaxis - SCDs Discharge Planning Possible discharge in 1-2 days David Bucio MD July 06, 2016 11:02
[2016-07-06] MEDS ORDERED: DEXA4TAB PO (11:05)
[2016-07-06] MEDS ORDERED: DIPH25CA PO (11:05)
--- NOTE | 2016-07-06 11:05 | HHI.DCPOC ---
Discharge Care Plan Diagnosis: (1) Lymphoma of central nervous system (2) Toxic metabolic encephalopathy Your Health Problems Are: Difficulty with ADL Exercise Tolerance Goals to Promote Your Health * To prevent worsening of your condition and complications * To maintain your health at the optimal level Directions to Meet Your Goals Take your medications as prescribed Follow your dietary instruction Follow activity as directed Keep your appointments as scheduled Take your immunizations and boosters as scheduled If your symptoms worsen call your PCP, if no PCP go to Urgent Care Center or Emergency Room Smoking is Dangerous to Your Health. Avoid second hand smoke Call the 24-hour hour crisis hotline for domestic abuse at David Bucio MD July 06, 2016 11:05
--- NOTE | 2016-07-06 11:06 | HHI.FF ---
Face to Face Verification Diagnosis: (1) Toxic metabolic encephalopathy (2) Lymphoma of central nervous system Physical Therapy Order: Evaluate and Treat, Improve ambulation, Strength and gait training I have seen patient Omayra Weathers on 07/06/16. My clinical findings support the need for the requested home health care services because: Deconditioned w/ increased weakness I certify that my clinical findings support that this patient is homebound because: Unsteady gait/balance Need for psychosocial assistance David Bucio MD July 06, 2016 11:06
[2016-07-06] MEDS ORDERED: WALKER WHEELS/F1 MIS (11:07)
[2016-07-06 12:00] VITALS: BP 121/70; PULSE 83; RESP 18; TEMP 97.1; O2SAT 99
[2016-07-06] MEDS ORDERED: POTASSIUM CHLORIDE 10 MEQ CONTROLLED RELEASE TAB PO ONE (12:00)
--- NOTE | 2016-07-06 12:01 | RADRPT ---
EXAM DATE/TIME: 07/06/2016 11:39 [facility] COMPARISON: CHEST PA & LAT, June 20, 2011, 14:49. INDICATIONS : Difficulty breathing. MEDICAL HISTORY : Lymphoma SURGICAL HISTORY : [place] ENCOUNTER: Initial ACUITY: 1 day PAIN SCORE: 0/10 LOCATION: Bilateral chest FINDINGS: Right port catheter tip overlies the SVC. The lungs are clear. Heart size normal. No consolidation or effusion. Osseous structures are intact. CONCLUSION: No acute disease. Sean Alexander MD on July 06, 2016 at 11:59 Board Certified Radiologist. This report was verified electronically.
[2016-07-06 13:10] LABS: APTT (PATIENT) 22.2 SEC (24.3-30.1); PROTHROMBIN TIME - PATIENT 10.7 SEC (9.8-11.6)
[2016-07-06] MEDS ORDERED: LORA-474 PO (13:59)
[2016-07-06 16:44] VITALS: BP 136/76; PULSE 60; RESP 17; TEMP 96.4; O2SAT 98
[2016-07-06] MEDS ORDERED: ACETAMINOPHEN 325 MG TAB PO PRN (17:45)
[2016-07-06 20:00] VITALS: BP 125/88; PULSE 69; RESP 18; TEMP 98; O2SAT 98
--- NOTE | 2016-07-06 20:38 | RC ---
cc: ASHLEY BARBER ALVARO MD VINAS, FEDERICO C. M.D. DEVERAS, RUBY ANNE E. M.D. 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 CHIEF COMPLAINT Confusion, new brain mass. REASON FOR VISIT The patient being evaluated for salvage radiotherapy treatment options. HISTORY OF PRESENT ILLNESS Most of information on this H&P is obtained from the patient's family as well as from the records. The patient is confused, aggressive, noncompliant. The patient did not want me to perform a physical exam or touch her at the present time. The patient was very agitated. I witnessed this. Nurse called the hospitalist to discuss further options for the patient. 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 Appears that the patient had this diagnosis about 22 months ago. She had several cycles of chemotherapy which resulted in a complete response. The patient's daughter states that then a few months later it came back again in the left maxillary sinus as an isolated area and she underwent another round of chemotherapy and had another complete response. I believe that they stated that this was probably about 4-6 months ago. Recently the patient started having more confusion and disoriented. Previous admission she was found in the bathroom and brought to the emergency room where she had further evaluation and noted to have several brain masses. Dr. Najera has evaluated the patient and recommended oncology care and management. He said about possible biopsy could be entertained if the family wants. I have been consulted for recommendations regarding radiation therapy in this patient. The patient's family members, gave me the phone number of the neuro oncologist that treated her in [place]. I did call but the office was closed and she was not web consultant so I will try to reconnect with her on Thursday. I have discussed this case with Dr. Fontana today. PAST MEDICAL HISTORY As above. Also history of: 1. Anxiety and depression. 2. COPD. 3. Stomach ulcers. 4. History of tonsillectomy. 5. Right eye surgery. 6. Hemorrhoidectomy. 7. Plastic surgery. 8. Sinus surgery. MEDICATIONS 1. Ativan. 2. Zofran. 3. Benadryl. 4. Protonix. 5. Narcan. ALLERGIES CODEINE, ADRIAMYCIN, PENICILLIN AND SULFA. FAMILY HISTORY No history of carcinoma in the family. SOCIAL HISTORY No smoking history. EtOH intake socially. REVIEW OF SYSTEMS Obtained from the and the daughter. CONSTITUTIONAL: Fatigue and lethargy in the last few weeks. ALLERGIES: Has not had an allergic reaction recently. EYES: Unremarkable. ENT: Unremarkable. NECK: Unremarkable. INTEGUMENT: Flushing of the face recently after starting the Decadron. CARDIOVASCULAR: Unremarkable. RESPIRATORY: Unremarkable. GASTROINTESTINAL: Unremarkable. GENITOURINARY: Unremarkable. MUSCULOSKELETAL: Unremarkable. NEUROLOGIC: Increased disorientation, agitation, confusion. The patient not able to follow commands and not able to have a meaningful conversation. PSYCHIATRIC: Agitation. ENDOCRINE: Unremarkable. HEMATOLOGIC: History of lymphoma. DERMATOLOGIC: Unremarkable. PHYSICAL EXAMINATION VITAL SIGNS: Temperature 97.7, pulse 68, respiratory rate 18, blood pressure 148/80. Pulse oximetry 100% on room air. The rest of the physical examination was unable to be obtained, the patient too agitated. Not cooperating. With anxiety and agitation. The patient aggressive. The patient not willing to allow me to touch her or auscultate her or do any of the examination. Surgical pathology not performed but history of lymphoma per the records and the patient. IMAGING Radiology CT scan of the head 07/03/2016. Conclusion. Normal CT scan of the head as described above with a new area of edema high in the left parietal occipital region. MRI would be helpful. MRI of the brain 07/04/2016. Impression. A 2.1-cm enhancing mass in mid aspect of the left parietal occipital region with additional subcentimeter lesions in the left temporal lobe. There is also abnormal edema in the right caudate nucleus and multifocal edema on the right frontal lobe without significant associated enhancement. There is no intense increase in signal or diffusion weighted images suggestive of infarction. ASSESSMENT A 70-year-old white female with diagnosis of recurrent lymphoma. The patient being evaluated for possible radiotherapy treatment options. PLAN I had an extensive discussion with the patient and her in regards to her present disease and condition. I did try to reach Dr. MELANIE Whitehead at [phone] and was unable to reach her. This is the neuro oncologist that treated her in [place]. It appears that the patient may have a history of primary brain lymphoma or sinus lymphoma. This is her third recurrence. Second recurrence in the brain. I advised the daughter and the that we potentially can provide some palliative radiotherapy to the brain and see if we can obtain control. I advised them this is a very aggressive disease and that it recurs shortly after treatments. They potentially could consider some chemotherapy instead of the radiation therapy but with the amount of disease that I am seeing on the MRI and the fact that it has been less than 12 months since her last chemotherpy, I would recommend that she at least starts with the radiation therapy. I advised them though at this point due to the agitation of the patient and the noncompliance of the patient, that I will not be able to do the radiation therapy as the patient has to remain very still during the treatments. So hopefully the steroids will start working soon or the patient could be sedated somehow so that we could contemplate doing some treatments. I discussed the merits of the radiation therapy as well as side effects and complications extensively with the patient and the daughter. We discussed the complications include but limited due to weakness and fatigue, decreased blood counts, erythema of the skin, necrosis of the skin, loss of hair in the scalp which could be permanent, brain swelling and edema, brain necrosis which may require prolonged use of steroids, encephalopathy of the brain which can lead to dementia after the radiation therapy especially for this case of primary brain lymphoma. We discussed decreased hearing, loss of increased, decreased vision, loss of vision and short-term memory and long-term memory problems. I also discussed possibility of hospice care with them and possible prognosis. At this point we will wait a few days and see if the patient is able to respond to steroids and her anxiety and disorientation decreases so that we are able to treat her. I discussed this case today with Dr. Fontana and will proceed accordingly. The patient's and daughter were given the my office number to call me if they have any questions. We will proceed accordingly. They were advised that if I could be of any further assistance to please let me know. ADDENDUM: 07/06/16, Case has been discussed several times with Dr. Fontana; I also discussed the patient's status with the patient and her family today and reviewed the MRI scan with them. At this point they want to transfer patient back to [place] for treatments. No further actions will be taken from my part. Dr. Najera thank you much for placing this consultation and allowing me to participate in the care of your patient. [id number] have any further questions or concerns please do not hesitate to contact me. Jurgen Kaur MD Radiation Oncologist [facility] /6:24 PM /7:37 PM VICKY
[2016-07-07] VITALS: BP 141/75; PULSE 57; RESP 18; TEMP 97.5; O2SAT 99
[2016-07-07] MEDS: diphenhydrAMINE HCL 25 MG CAP PO PRN ×2 (00:01→11:15)
[2016-07-07] MEDS: ACETAMINOPHEN 325 MG TAB PO PRN (00:02)
[2016-07-07] MEDS: DEXAMETHASONE 4 MG TAB PO SCH ×3 (00:02→11:15)
[2016-07-07 04:15] VITALS: BP 128/80; PULSE 59; RESP 18; TEMP 98.1; O2SAT 98
[2016-07-07 08:00] VITALS: BP 152/82; PULSE 70; RESP 18; TEMP 97.6; O2SAT 100
[2016-07-07] MEDS: SODIUM CHLORIDE 0.9% FLUSH 10 ML FLUSH IV FLUSH SCH (09:00)
[2016-07-07] MEDS: ESCITALOPRAM OXALATE 20 MG TAB PO SCH (09:29)
[2016-07-07] MEDS: PANTOPRAZOLE SOD 40 MG DELAYED RELEASE TAB PO SCH (09:29)
[2016-07-07] MEDS: GABAPENTIN 300 MG CAP PO SCH (09:29)
--- NOTE | 2016-07-07 11:00 | HHI.DS ---
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 Velazquez on 07/04/16 at 03:58. Mrs. Weathers is a 70-year-old female with a history of lymphoma, mild COPD, gastric ulcers, depression, and anxiety who presented to the emergency room in [place] on 07/03/2016 for evaluation of fatigue, lethargy, and increased confusion. She was diagnosed with lymphoma 2 years ago and has been treated at a cancer center in [place]. Shes had involvement of the sinuses. She was seen on June 18 in the ER following a fall with extensive bruising to face and had and was sent home after a negative CT of the brain. CT scan of head shows a new area of edema bilaterally in the left parietal occipital region. Dr. Najera, neurosurgeon, is aware. Patient was transferred to the [facility] and Decadron 4 mg IV every 6 hours was started. Brain MRI done here at the [facility] showed 2.1 cm enhancing mass in the medial aspect of the left parieto-occipital region with additional subcentimeter lesions in the left temporal lobe. Findings are most characteristic of metastatic disease. 2. There is also abnormal edema in the right caudate nucleus and multifocal edema and the right frontal lobe without significant associated enhancement. Differential diagnosis includes early metastatic disease or possibly contusions related to recent head trauma. There is no intense increased signal on diffusion-weighted images to suggest recent infarction. The patient is seen in her hospital room. States she is exhausted and has been unable to sleep. She reports a severe headache accompanied by photosensitivity - not worsened recently and denies unilateral weakness. Her is at the bedside and reports he has noted her to have increased confusion and severe fatigue over the past two weeks - found her in the bathroom yesterday with her head lodged between the toilet and the wall - thinks she passed out while on the toilet and she had to be awakened after they moved her from the bathroom; shortness of breath was noted by afterwards. He also reports that she has had a 10 pound weight loss in 2 weeks along with diminished appetite. Reports lymphoma in the sinus - 21 months of chemotherapy with last dose about six weeks ago in [place]. She has had 6 syncopal episodes since starting chemotherapy according to her . Denies any recent fevers, nausea, vomiting, diarrhea, hematuria, or dysuria. She is noted to have frequent urinary urgency while at bedside and patient reports history of recent "really bad UTI". CBC/BMP: 07/06/16 0722 07/06/16 07 Significant Findings Laboratory Tests Test 07/05/16 07/06/16 07/06/16 05:35 07:22 12:47 Lactate Dehydrogenase 276 U/L (84-246) Red Blood Count 2.90 MIL/MM3 (4.00-5.30) Hemoglobin 9.9 GM/DL (11.6-15.3) Hematocrit 28.8 % (35.0-46.0) Mean Corpuscular Hemoglobin 34.1 PG (27.0-34.0) Platelet Count 99 TH/MM3 (150-450) Neutrophils (%) (Auto) 77.8 % (16.0-70.0) Lymphocytes # (Auto) 0.7 TH/MM3 (1.0-4.8) Platelet Estimate LOW (NORMAL) Ovalocytes 1+ (NORMAL) Potassium Level 3.4 MEQ/L (3.5-5.1) Estimat Glomerular Filtration 85 ML/MIN (>89) Rate Random Glucose 123 MG/DL (74-106) Activated Partial 22.2 SEC Thromboplast Time (24.3-30.1) Imaging Last Impressions Chest X-Ray 07/06/16 0000 Signed Impressions: Service Date/Time: Wednesday, July 06, 2016 11:39 - CONCLUSION: No acute disease. Sean Alexander MD Brain MRI 07/04/162041 Signed Impressions: Service Date/Time: Monday, July 04, 2016 01:37 - CONCLUSION: 1. 2.1 cm enhancing mass in the medial aspect of the left parieto-occipital region with additional subcentimeter lesions in the left temporal lobe. Findings are most characteristic of metastatic disease. 2. There is also abnormal edema in the right caudate nucleus and multifocal edema and the right frontal lobe without significant associated enhancement. Differential diagnosis includes early metastatic disease or possibly contusions related to recent head trauma. There is no intense increased signal on diffusion-weighted images to suggest recent infarction. Nish Gutierrez MD Carotid Artery Ultrasound 07/04/16 0000 Signed Impressions: Service Date/Time: Monday, July 04, 2016 09:32 - CONCLUSION: No evidence of hemodynamically significant lesion. Sedrick Villalobos MD Head CT 07/03/16 1930 Signed Impressions: Service Date/Time: June 19:46 - CONCLUSION: Abnormal CT scan of the head as described above with a new area of edema high in the left parietal occipital region. MRI would be helpful for further evaluation. Davis Lira MD FACR Abdomen X-Ray 07/03/16 0000 Signed Impressions: Service Date/Time: Monday, July 04, 2016 01:14 - CONCLUSION: No evidence of obstruction. No MRI incompatible foreign body is identified. Nish Gutierrez MD PE at Discharge GENERAL: NAD SKIN: Warm and dry. HEAD: Normocephalic. EYES: No scleral icterus. No injection or drainage. NECK: Supple, trachea midline. No JVD or lymphadenopathy. CARDIOVASCULAR: Regular rate and rhythm without murmurs, gallops, or rubs. RESPIRATORY: Breath sounds equal bilaterally. No accessory muscle use. GASTROINTESTINAL: Abdomen soft, non-tender, nondistended. MUSCULOSKELETAL: No cyanosis, or edema. BACK: Nontender without obvious deformity. No CVA tenderness. Awake, alert, oriented, 5 over 5 all 4 extremities. Hospital Course 70-year-old female with history of [employer] lymphoma presenting with altered mental status Acute toxic metabolic encephalopathy likely secondary to [employer] lymphoma- neurosurgery consulted, agreed with [facility] following. EEG without seizure activity History of lymphoma with possible metastasis to the brain with cerebral edema - CT scan of head shows a new area of edema bilaterally in the left parietal occipital region. Brain MRI showed 2.1 cm enhancing mass in the medial aspect of the left parieto-occipital region with additional subcentimeter lesions in the left temporal lobe. Findings are most characteristic of metastatic disease. Neurosurgery following, continue Decadron. No further biopsy needed per oncology. Urgent treatment with radiation and chemotherapy per radiation oncology and medical oncology. Patient and family request to be transferred to [facility] where she resides Syncopal episode - seizure activity vs vascular etiology, EEG without seizure - Echocardiogram ejection fraction 55-60%, carotid ultrasound no significant stenosis. Itching-could be secondary to steroids, patient also feels anxious and hyper, Benadryl as needed, Ativan for severe anxiety. History of gastric ulcers - Pantoprazole Continue physical therapy recommended home health care with wheeled walker. DVT prophylaxis - SCDs Pt Condition on Discharge: Stable Discharge Disposition: Disch to Another Hospital Discharge Time: > 30 minutes Discharge Instructions DIET: Follow Instructions for: Heart Healthy Diet Activities you can perform: Regular-No Restrictions Activities to Avoid: Driving Follow up Referrals: PCP Follow-up - 1 Week New Medications: Walker with Front Wheels (Walker with Front Wheels) 1 Mis Mis 1 EA .ROUTE DIRECTED #1 Ref 0 EA Dexamethasone (Dexamethasone) 4 Mg Tab 4 MG PO Q6HR Control Inflammation #120 TAB Diphenhydramine (Diphenhydramine) 25 Mg Cap 25 MG PO Q6H PRN itching,anxiety,sleep #30 CAP Lorazepam (Ativan) 1 Mg Tab 1 MG PO Q8H PRN severe anxiety #10 TAB Continued Medications: Escitalopram (Lexapro) 20 Mg Tab 20 MG PO DAILY #30 Ref 0 TAB Fexofenadine-Pseudoephedrine ER 12 HR (Gisela-D 12 Hour Allergy) 60-120 Mg Paulina 1 TAB PO BID Allergy Management #60 Ref 0 TAB Gabapentin (Gabapentin) 300 Mg Cap 300 MG PO BID #60 Ref 0 CAP Pantoprazole (Protonix) 40 Mg Tab 40 MG PO DAILY Reflux #30 Ref 0 TAB David Bucio MD July 07, 2016 10:59
--- NOTE | 2016-07-07 11:42 | PD.ONC.PN ---
Subjective Subjective Remarks Feeling better. Mental status has improved. Mild head ached intermittently, no visual changes. Eager to go back to [place]. Objective Data Date Time Temp Pulse Resp B/P Pulse Ox O2 Delivery O2 Flow Rate FiO2 07/07/16 08:00 97.6 70 18 152/82 100 07/07/16 04:15 98.1 59 18 128/80 98 07/07/16 00:00 97.5 57 18 141/75 99 07/06/16 20:00 98.0 69 18 125/88 98 07/06/16 16:44 96.4 60 17 136/76 98 07/06/16 12:00 97.1 83 18 121/70 99 07/07/16 07/07/16 07/07/16 06:59 14:59 22:59 Intake Total 900 ml Balance 900 ml Result Diagram: 07/06/1672107/06/16721 Laboratory Results Laboratory Tests Test 07/06/16 12:47 Prothrombin Time 10.7 SEC Prothromb Time International 1.0 RATIO Ratio Activated Partial 22.2 SEC Thromboplast Time Fibrinogen 223 mg/dL Culture Results Microbiology Date/Time Procedure Status Source Growth 07/06/16 22:25 Stool Occult Blood (JACKLYN) - Final Complete Stool Stool HEMOCCULT NEGATIVE Administered Medications Medications (Trade) Dose Ordered Sig/Anita Route PRN Reason Start Time Stop Time Status Last Admin Dose Admin Sodium Chloride (NS Flush) 2 ml BID IV FLUSH 07/04/16 09:00 07/05/16 21:00 Acetaminophen (Tylenol) 650 mg Q4H PRN PO Temp > 100.4, pain 07/04/16 12:45 07/07/16 00:02 Senna/Docusate Sodium (Nely-Colace) 1 tab BID PRN PO CONSTIPATION 07/04/16 12:45 07/06/16 09:44 Pantoprazole Sodium (Protonix) 40 mg DAILY PO 07/04/16 23:00 07/07/16 09:29 Dexamethasone (Decadron) 4 mg Q6HR PO 07/05/16 00:00 07/07/16 11:15 Diphenhydramine HCl (Benadryl) 25 mg Q6H PRN PO itching,anxiety,sleep 07/05/16 11:00 07/07/16 11:15 Lorazepam (Ativan) 1 mg Q8H PRN PO severe anxiety 07/05/16 11:00 07/06/16 03:51 Diphenhydramine HCl (Benadryl 2% Cream) 1 applic TID PRN TOPICAL ITCHING 07/05/16 13:45 07/05/16 18:01 Escitalopram Oxalate (Lexapro) 20 mg DAILY PO 07/06/16 09:00 07/07/16 09:29 Gabapentin (Neurontin) 300 mg BID PO 07/06/16 09:00 07/07/16 09:29 Acetaminophen (Tylenol) 650 mg Q4H PRN PO headache 07/06/16 17:45 07/06/16 19:52 Objective Remarks GENERAL: Well-nourished, well-developed patient. Pleasant and cooperative. SKIN: Warm and dry. HEAD: Normocephalic. EYES: No scleral icterus. No injection or drainage. NECK: Supple, trachea midline. No JVD or lymphadenopathy. LYMPHATIC: No adenopathy. CARDIOVASCULAR: Regular rate and rhythm without murmurs. RESPIRATORY: Breath sounds equal bilaterally. No accessory muscle use. GASTROINTESTINAL: Abdomen soft, non-tender, nondistended. EXTREMITIES: No cyanosis, or edema. MUSCULOSKELETAL: Adequate muscle tone. NEUROLOGICAL: No obvious focal deficit. Awake, alert, and oriented x3. PSYCHIATRIC: Appropriate mood and affect; insight and judgment normal. Assessment/Plan Problem List: (1) Lymphoma Status: Acute Plan: --MRI showed 2.1 cm enhancing mass in the medial aspect of left parietooccipital region with addition of lesion in the left temporal lobe. There are also abnormal edema in the right caudate nucleus and multifocal edema in the right frontal lobe without significant enhancement. --PET scan June 21, reportedly also did not show any recurrent disease. --brain lesion is most consistent with H[employer]WYER lymphoma given the patient's history -- treatment options include radiation followed by consolidation chemotherapy. --Dr. Huitron phone #[phone]. --Given the patient's history, do not feel strongly that the patient needs a biopsy of the brain lesion. --Pt and family is going to be transfer back to [place] for her treatment. Assessment 70y/o female with history of lymphoma, now presented with brain mass. 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 She was diagnosed with lymphoma about 22 months ago. She was seeing Dr. Violeta Whitehead [place] cancer specialist. She was first treated with Rituxan and CHOP alternating with a high-dose methotrexate for about six months. Reportedly , she had a good response and was observed. Unfortunately, she developed recurrent disease about three months later. According to her , it recurred only in the sinus. She was then treated with Rituxan and bendamustine alternating with high-dose methotrexate. Her last dose was six weeks ago. She just came to [place] from [place]. Over the last week, she has increased fatigue and was very lethargic. Two days ago, her found her passed out in the bathroom and she was brought into the hospital. Plan 1. discussed with pt , her , and her son. Their questions answered. 2. Await transfer to [place] for her treatment. 3. Continue decadron. 4. Discussed with . Freeman Silverman MD July 07, 2016 11:41
[2016-07-07] MEDS: LORazepam 1 MG TAB PO PRN (12:08)
== END 2016-07-07 12:34 | disposition short-term general hospital (02) | DRG 840 ==
LOC: PHED 19:03 → PHEDA 20:55 → N05B 22:42
PROVIDERS: ADMIT Internal Medicine; ATTEND Internal Medicine
DX: C85.99 Non-Hodgkin lymphoma, unspecified, extranodal and solid organ sites (principal); G93.6 Cerebral edema; G92 Toxic encephalopathy; J44.9 Chronic obstructive pulmonary disease, unspecified; F32.9 Major depressive disorder, single episode, unspecified; F41.9 Anxiety disorder, unspecified; Z87.11 Personal history of peptic ulcer disease
CPT/HCPCS: 70450; 70553; 71010; 80048; 80053; 81001; 82232; 82272; 83615; 84443; 84484; 85025; 85384; 85610; 85730; 93005; 93306; 93880; 95819; 99223; A9579; C9113; J1100; J2060; J7030; J8540